=== PATIENT | male | born 1985 | race Caucasian/White ===

== ENCOUNTER 2017-07-22 15:49 | Emergency (ER) | payer OTHER ==
[~2017-07-22] VITALS: Ht 175.2 cm; Wt 77.1 kg
[~2017-07-22 15:49] MED LIST: AMOXICILLIN500 M1 PO; HYDROCODONE BIT1 T11 PO; MOTRIN800 MG PO; NORCO 325 MG-51 TAB PO; PEN-VEE K500 MG PO; PEN-VK500 MG PO; PENICILLIN VK500 MG PO; PERIDEX 480 ML480 ML PO; Peridex 473 ML473 ML PO; TYLENOL325 M1; VIBRAMYCIN100 MG PO
[2017-07-22] MEDS ORDERED: FLONASE ALLERG9.9 ML NAS (16:30)
[2017-07-22] MEDS ORDERED: CLARITIN10 MG PO (16:30)
[2017-07-22] MEDS ORDERED: ROBITUSSIN AC 110 ML PO (16:30)
[2017-07-22] MEDS ORDERED: PREDNISONE10 MG PO (16:30)
== END 2017-07-22 17:28 | disposition home or self-care (01) ==
LOC: ED 15:49
DX: B34.9 Viral infection, unspecified (principal); Z91.030 Bee allergy status

== ENCOUNTER 2017-12-27 18:38 | Emergency (ER) | payer OTHER ==
[~2017-12-27] VITALS: Ht 175.2 cm; Wt 80.7 kg
[~2017-12-27 18:38] MED LIST changes: +CLARITIN10 MG PO; +FLONASE ALLERG9.9 ML NAS; +PREDNISONE10 MG PO; +ROBITUSSIN AC 110 ML PO
== END 2017-12-27 21:28 | disposition home or self-care (01) ==
LOC: ED 18:38
DX: R06.02 Shortness of breath (principal); Z91.030 Bee allergy status

== ENCOUNTER → 2019-12-13 | Outpatient (CLI) | payer OTHER ==
[~2019-12-13] MED LIST changes: +IBU800 MG PO
== END | disposition home or self-care (01) ==
LOC: RAD 13:06
DX: M54.5 Low back pain (principal)

== ENCOUNTER 2020-03-09 16:59 | Inpatient (IN) | payer OTHER ==
[~2020-03-09] VITALS: Ht 175.3 cm; Wt 84.9 kg
[2020-03-09 17:03] VITALS: BP 131/82
[2020-03-09 18:25] LABS: BASO % 0.1 % (0.0-1.0); EOS % 0.2 % (1.0-4.0); HEMATOCRIT 43.5 % (42.0-52.0); LYMPH # 1.5 10*3/uL (1.3-4.4); LYMPH % 18.4 % (27.0-41.0); MEAN CELL VOLUME 85.8 fl (80.0-94.0); MEAN CORPUSCULAR HGB CONC 33.8 g/dl (33.0-37.0); MEAN PLATELET VOLUME 10.7 fl (9.6-12.3); MONO # 0.6 10*3/uL (0.1-1.0); MONO % 7.4 % (3.0-9.0); NEUT # 6.1 10*3/uL (2.3-7.9); NEUT % 73.4 % (47.0-73.0); PLATELET COUNT AUTOMATED 320 10*3/uL (130-400); RED BLOOD COUNT 5.07 10*6/uL (4.50-5.90); RED CELL DISTRI WIDTH 13.8 % (0-14.5); WHITE BLOOD COUNT 8.3 10*3/uL (4.8-10.8)
[2020-03-09 18:29] LABS: ABG BASE EXCESS 3.4 mmol/L (-2.0-2.0); ARTERIAL BLOOD GAS PH 7.463 (7.35-7.45)
--- NOTE | 2020-03-09 18:35 | NUR ---
PT HAD RAPID TESTING DONE AT 1817, AT 1832 PT TESTED POSITIVE FOR COVID-19. IGG AND IGM WERE SHOWN TO BE POSITIVE WELL THE CONTROL PANEL.
[2020-03-09 18:39] LABS: ACT PARTIAL THROMBO TIME 32.5 SECONDS (20.0-32.1)
[2020-03-09 18:42] LABS: ALBUMIN 2.8 gm/dl (3.1-4.5); ALKALINE PHOSPHATASE 113 U/L (45-117); BUN 12 mg/dl (7-24); CHLORIDE 104 mmol/L (98-107); CPK 635 U/L (39-308); CREATININE 0.91 mg/dL (0.70-1.30); LDH 555 U/L (87-241); POTASSIUM 3.2 mmol/L (3.5-5.1); SGOT/AST 81 IU/L (3-35); SGPT/ALT 146 U/L (12-78); SODIUM 137 mmol/L (136-145); TOTAL PROTEIN 7.7 gm/dL (6.4-8.2); TROPONIN I < 0.015 ng/ml (<0.045)
--- NOTE | 2020-03-09 19:21 | NUR ---
CAMILA THORNTON ATTEMPTED TO CALL REPORT OVER PHONE,NURSE UNAVAILABLE AT THIS TIME.
[2020-03-09 20:00] VITALS: BP 120/79
--- NOTE | 2020-03-09 20:00 | NUR ---
Time: 1999 A 34 year old MALE admitted to 5E under services of MARILEE JONES DO. Pt. arrived via bed from ER. Chief complaint: SHORTNESS OF BREATH, COUGH, NAUSEA, VOMITING, DIARRHEA X1 WEEK. YANA COLES
--- NOTE | 2020-03-09 20:36 | NUR ---
OXYGEN ON 6LITERS HUMIDIFIED AT 90-92%. RESP-20, NO SIGNS OF ACUTE DISTRESS NOTED. HR-70-80'S
[2020-03-09] MEDS ORDERED: OMNICEF300 MG PO (21:05)
[2020-03-09] MEDS ORDERED: PRILOSEC20 M1 PO (21:06)
[2020-03-09] MEDS ORDERED: VIIBRYD40 PO (21:06)
[2020-03-09] MEDS ORDERED: MAGNESIUM OXID500 MG PO (21:07)
[2020-03-09] MEDS ORDERED: TOPAMAX25 M3 PO (21:07)
[2020-03-09] MEDS ORDERED: PHARMASSURE FO0.4 MG PO (21:07)
[2020-03-09] MEDS ORDERED: PROAIR HFA8.5 GM INH (21:08)
[2020-03-09] MEDS ORDERED: SYMB160 INH (21:08)
[2020-03-09] MEDS ORDERED: SINGULAIR10 M1 PO (21:09)
[2020-03-09] MEDS ORDERED: MINIPRESS2 M1 PO (21:09)
[2020-03-09] MEDS ORDERED: XANAX1 MG PO (21:10)
[2020-03-09] MEDS ORDERED: REXULTI3 MG PO (21:11)
--- NOTE | 2020-03-09 21:12 | NUR ---
PT 89% 6LITERS. NO DISTRESS NOTED. RESPP-18-20. HR-70-80'S. RESPIRATORY IN ROOM. PLACED ON HIGHFLOW AT 8LITERS 95-96%. NO C/O AT THIS TIME. CALL LIGHT IN REACH.
--- NOTE | 2020-03-09 22:10 | NUR ---
CALLED DR. BOBO AWARE OF ADMISSION. ORDERS TAKEN AND REVIEWED.
--- NOTE | 2020-03-09 22:23 | NUR ---
CALLED DR. PISANO ANSWERING SERVICE THEY WILL BEEP HER.
--- NOTE | 2020-03-09 23:30 | NUR ---
PT RESTING IN BED. OXYGEN IN USE. PT HAS NO C/O AT THIS TIME. TOLERATED ROUTINE MED WITH NO PROBLEM. HR-83, PULSE OX 94% 8 LITER HIGHFLOW. TEMP 97.6 ORALLY. CALL LIGHT IN REACH.
--- NOTE | 2020-03-09 23:40 | NUR ---
PT RESTING IN BED. OXYGEN IN USE. NO C/O AT THIS TIME. TOLERATED ROUTINE MED WITH NO PROBLEM. NO C/O AT THIS TIME. CALL LIGHT IN REACH. SEE SHIFT ASSESSMENT.
[2020-03-10] VITALS (7 sets, daily range): BP systolic 98–170; BP diastolic 64–90
--- NOTE | 2020-03-10 03:50 | NUR ---
PT SAT UP IN BED. PULSE OX 86-88% ON 8 LITER HIGHFLOW. OXYGEN INCREASED GRADUALLY WITH 96% ON 15LITERS HIGHFLOW. BP 127/80, RESP-22. ASSISTED PT IN PRONE POSITION. OXYGEN 100% ON 15LITERS, DECREASED TO 13LITERS HIGHFLOW WITH PULSE OX 95-96%. RESP-23 AT THIS TIME. CALL LIGHT IN REACH.
--- NOTE | 2020-03-10 04:04 | NUR ---
PT INSTRUCTED TO TRY TO LAY ON STOMACH FOR OXYGENATION. INCREASING O2. SAO2 DID IMPROVE WHEN PT TURNED TO BELLY
--- NOTE | 2020-03-10 05:06 | NUR ---
PT SUPINE AT THIS TIME. NO SIGNS OF ACUTE DISTRESS NOTED. OXYGEN IN USE. CALL LIGHT IN REACH.
--- NOTE | 2020-03-10 05:40 | NUR ---
PT RESTING IN BED. LABWORK DRAWN. PULSE OX 88-91% 13LITERS HIGHFLOW. PUT ON 15L HIGHFLOW PULSE OX 90-95%. RESP-20. NO C/O AT THIS TIME. CALL LIGHT IN REACH.
[2020-03-10 06:14] LABS: BASO % 0.2 % (0.0-1.0); EOS # 0.1 10*3/uL (0.0-0.4); EOS % 0.6 % (1.0-4.0); HEMATOCRIT 40.6 % (42.0-52.0); LYMPH # 1.6 10*3/uL (1.3-4.4); LYMPH % 19.5 % (27.0-41.0); MEAN CELL VOLUME 86.4 fl (80.0-94.0); MEAN CORPUSCULAR HGB 28.9 pg (27.0-31.0); MEAN CORPUSCULAR HGB CONC 33.5 g/dl (33.0-37.0); MEAN PLATELET VOLUME 11.1 fl (9.6-12.3); MONO # 0.7 10*3/uL (0.1-1.0); MONO % 8.6 % (3.0-9.0); NEUT # 5.7 10*3/uL (2.3-7.9); NEUT % 70.5 % (47.0-73.0); PLATELET COUNT AUTOMATED 332 10*3/uL (130-400); RED CELL DISTRI WIDTH 13.8 % (0-14.5); WHITE BLOOD COUNT 8.2 10*3/uL (4.8-10.8)
[2020-03-10 06:22] LABS: ABG BASE EXCESS 1.3 mmol/L (-2.0-2.0); ARTERIAL BLOOD GAS PH 7.495 (7.35-7.45)
[2020-03-10 06:29] LABS: ALBUMIN 2.7 gm/dl (3.1-4.5); BUN 12 mg/dl (7-24); CHLORIDE 105 mmol/L (98-107); CHOLESTEROL 97 mg/dL (<200); CREATININE 0.94 mg/dL (0.70-1.30); POTASSIUM 3.1 mmol/L (3.5-5.1); SGOT/AST 61 IU/L (3-35); SGPT/ALT 126 U/L (12-78); SODIUM 137 mmol/L (136-145); TOTAL PROTEIN 7.1 gm/dL (6.4-8.2); TRIGLYCERIDES 260 mg/dl (<150); VLDL CHOLESTEROL 52 mg/dL (6-40)
[2020-03-10 06:30] LABS: ALKALINE PHOSPHATASE 102 U/L (45-117); HDL CHOLESTEROL 7 mg/dl (40-60); LDL CHOLESTEROL 38 mg/dL (9-159)
--- NOTE | 2020-03-10 07:30 | NUR ---
PT RESTING IN BED. VERY ANXIOUS. DENIES ANY PROBLEMS AT THIS TIME. 15L HIGH FLOW NC IN USE AT THIS TIME. PULSE OX CURRENTLY 93%, DROPS DOWN TO 80'S WITH MINIMAL MOVEMENT. DENIES ANY SOB. ASSESSMENT COMPLETE. CALL LIGHT WITHIN REACH. WILL CONTINUE TO MONITOR.
--- NOTE | 2020-03-10 09:21 | NUR ---
09:15 PT UNPRONED WITHOUT INCICENT. ANESTHESIA AT THE HEAD OF THE BED. ETT HARNESS REPOSITIONED AND ETT SECURED AT 26 AT THE LIP. BBSs EQUAL BILATERALLY. VENT CHECKED AND FX'ING. PT SEDATED PRIOR TO UNPRONING BY RN.
--- NOTE | 2020-03-10 09:30 | NUR ---
AWARE PTS PULSE OX KEEPS DROPPING IN THE 80S AND PT ON 15L HIGH FLOW NC. PER HE WANTS THE PATIENT INTUBATED.
--- NOTE | 2020-03-10 10:00 | NUR ---
PT PRONED AT THIS TIME.
--- NOTE | 2020-03-10 10:00 | NUR ---
TALKED TO PT ABOUT BEING INTUBATED. EXPLAINED THE REASONING FOR WANTING HIM INTUBATED AND THE RISK OF NOT BEING INTUBATED. PT REFUSING INTUBATION AT THIS TIME. AT BEDSIDE TO EXPLAIN THE RISKS TO PATIENT ALSO AND PATIENT STILL REFUSING.
--- NOTE | 2020-03-10 11:00 | NUR ---
PT ON BACK AT THIS TIME. PT STATES HE COULD NOT STAY PRONED ANY LONGER.
--- NOTE | 2020-03-10 13:00 | NUR ---
Infomed consent obtained from patient by Dr. JENNIFER SUAREZ [employer] COATER MACHINE OPERATOR for elective intubation. Patient intubated with 8 Guatemalan endotracheal tube orally X 1 attempts. Patient sedated with DIPRIVAN, ZEMURON, VERSED Respiratory therapy at bedside. Crash cart with emergency drugs available. Endotracheal tube inflated with 8cc's. Lungs auscultated for equality of breath sounds. Tube secured with Tube tamer at 27 cm's. at level of LIP . Patient tolerated procedure WELL. Portable chest X-ray obtained and reviewed for tube placement. Patient connected to ventilator CMV mode, 500 tidal volume, 60 FIO2, 15 PEEP, and pressure support. ALEXEY HUMPHRIES
--- NOTE | 2020-03-10 14:30 | NUR ---
ART LINE PLACED BY DR MENDEZ TO RIGHT RADIAL. R)IJ MULTILUMEN CATH PLACED BY JENNIFER SUAREZ CRNA.
--- NOTE | 2020-03-10 15:16 | NUR ---
13:00 PT INTUBATED WITHOUT INCIDENT BY ANESTHESIA : #8 28 CM AT LIP. BBSs EQUAL, CLEAR, DIMINISHED. ETT SECURED WITH TUBE TAMER. PT PLACED ON VENT. VENT CHECKED AND FX'ING.
--- NOTE | 2020-03-10 15:24 | NUR ---
14:00 INITIAL VENT SETTINGS UPON INTUBATION: AC20/450/.90/+10. CHANGES PER DR BOBO : AC20/500/.60/+15. ABG TO FOLLOW IN 2 HRS.
--- NOTE | 2020-03-10 15:34 | NUR ---
PT GIVEN ZEMURON FOR RESTLESSNESS.
[2020-03-10 16:29] LABS: ABG BASE EXCESS -0.6 mmol/L (-2.0-2.0); ARTERIAL BLOOD GAS PH 7.354 (7.35-7.45)
[2020-03-10 17:46] LABS: ABG BASE EXCESS -0.3 mmol/L (-2.0-2.0); ARTERIAL BLOOD GAS PH 7.375 (7.35-7.45)
--- NOTE | 2020-03-10 18:15 | NUR ---
PT MEDICATED WITH ZEMURON DUE TO RESTLESSNESS AND BREATHING ABOVE THE VENT. PT MEDICATED WITH TYLENOL FOR TEMP OF 100
--- NOTE | 2020-03-10 18:57 | NUR ---
PT PRONED AT THIS TIME.
--- NOTE | 2020-03-10 18:58 | NUR ---
Shift chart check completed.24 HR chart check completed.
--- NOTE | 2020-03-10 19:28 | NUR ---
Pt proned at 1845. Pt is in swimming position. ABG will be drawn in 2 hours.
--- NOTE | 2020-03-10 21:05 | NUR ---
Pts head turned and tube secured. Arms swam in opposite swimming position.
[2020-03-10 21:12] LABS: ABG BASE EXCESS -0.3 mmol/L (-2.0-2.0); ARTERIAL BLOOD GAS PH 7.361 (7.35-7.45)
--- NOTE | 2020-03-10 21:24 | NUR ---
ON ASSESSMENT PT IS RESTING IN PRONE POSITION. REMAINS ORALLY INTUBATED WITH TUBES SECURE. DIPRIVAN DRIP AT 50MCG/KG/MIN. IV FLUIDS UP TO INFUSE PER ORDER. PULMOCARE AT 20/HR VIA OGT. LUCIANO PATENT CHRIS URINE. RECTAL PROBE PLACED FOR CONTINUAL TEMP MONITORING. AT 2100 WITH ASSIST OF RESPIRATORY, PT'S ARMS WERE ALTERNATED AND HIS HEAD REPOSITIONED. ALL TUBES SECURED AND PADDING IN PLACE TO PRESSURE AREAS. NEGATIVE AIRFLOW HAS BEEN MAINTAINED. SEE ALL APPROPRIATE INTERVENTIONS.
--- NOTE | 2020-03-10 22:48 | NUR ---
ROCURONIUM 92MG IV SLOWLY AT 2217 FOR RESTLESSNESS AND TACHYPNEA IN PRONE POSITION WITH IMMEDIATE RELIEF.
--- NOTE | 2020-03-10 23:45 | NUR ---
Pts head turned and tube secured. Arms in opposite swimming position. No comps. FIO2 decreased from 60% to 55%.
[2020-03-11] VITALS (33 sets, daily range): BP systolic 74–153; BP diastolic 48–89
--- NOTE | 2020-03-11 00:18 | NUR ---
PT REPOSITIONED WITH ASSIST OF RESPIRATORY THERAPY. FIO2 HAS BEEN TITRATED DOWN TO 55%. NO DYSRHYTHMIAS.
--- NOTE | 2020-03-11 02:51 | NUR ---
AT 0201 PT GIVEN IV ROCURONIUM FOR RESTLESSNESS WITH EFFECTIVENESS. PT'S HEAD AND ARMS POSITION CHANGED.
--- NOTE | 2020-03-11 04:23 | NUR ---
PT RESTING EASILY, ADEQUATELY SEDATED ON DIPRIVAN DRIP.
[2020-03-11 04:51] LABS: ALBUMIN 2.4 gm/dl (3.1-4.5); ALKALINE PHOSPHATASE 122 U/L (45-117); BUN 12 mg/dl (7-24); CHLORIDE 108 mmol/L (98-107); CREATININE 0.69 mg/dL (0.70-1.30); POTASSIUM 3.7 mmol/L (3.5-5.1); SGOT/AST 54 IU/L (3-35); SGPT/ALT 100 U/L (12-78); SODIUM 141 mmol/L (136-145); TOTAL PROTEIN 6.7 gm/dL (6.4-8.2); TRIGLYCERIDES 427 mg/dl (<150)
--- NOTE | 2020-03-11 05:00 | NUR ---
Pts proned head turned to the other side and tube secured. Arms moved into oppossite swimming position. No comps. Alarms on vent on and audible.
[2020-03-11 05:12] LABS: ABG BASE EXCESS -0.6 mmol/L (-2.0-2.0); ARTERIAL BLOOD GAS PH 7.324 (7.35-7.45)
[2020-03-11 06:13] LABS: BASO % 0.3 % (0.0-1.0); EOS % 0.4 % (1.0-4.0); HEMATOCRIT 39.3 % (42.0-52.0); LYMPH # 1.5 10*3/uL (1.3-4.4); LYMPH % 13.3 % (27.0-41.0); MEAN CELL VOLUME 88.7 fl (80.0-94.0); MEAN CORPUSCULAR HGB 28.7 pg (27.0-31.0); MEAN CORPUSCULAR HGB CONC 32.3 g/dl (33.0-37.0); MEAN PLATELET VOLUME 11.7 fl (9.6-12.3); MONO # 0.8 10*3/uL (0.1-1.0); MONO % 7.3 % (3.0-9.0); NEUT # 8.5 10*3/uL (2.3-7.9); PLATELET COUNT AUTOMATED 431 10*3/uL (130-400); RED BLOOD COUNT 4.43 10*6/uL (4.50-5.90); RED CELL DISTRI WIDTH 14.6 % (0-14.5); WHITE BLOOD COUNT 10.9 10*3/uL (4.8-10.8)
--- NOTE | 2020-03-11 07:45 | NUR ---
SEDATED ON VENT WITH DIPRIVAN 50 JV'S. BODY QUIVERING WITH RECTAL TEMP 99.5. BP 117/66. PULSE OX 96%. OGT IN PLACE WITH PULMOCARE INFUSING AT 20CC/HR. ART LINE INTACT TO RIGHT RADIAL AND RIGHT INTERNAL JUGULAR INTACT. LUCIANO DRAINING DARK CHRIS URINE
--- NOTE | 2020-03-11 08:45 | NUR ---
FIO2 DECREASED TO 50%, RN NOTIFIED.
--- NOTE | 2020-03-11 10:00 | NUR ---
PLACED BACK IN SUPINE POSITION. TOLERATED WELL. COMPLETE BED AND BATH DONE
[2020-03-11 10:35] LABS: ABG BASE EXCESS -1.1 mmol/L (-2.0-2.0); ARTERIAL BLOOD GAS PH 7.314 (7.35-7.45)
--- NOTE | 2020-03-11 11:44 | NUR ---
PT IS CURRENTLY ON VENT SO UNABLE TO TALK ABOUT DISCHARGE PLANS.
--- NOTE | 2020-03-11 11:49 | NUR ---
Nutritional Support Services Note: Pt currently on vent. Ht.5'9 Wt.207# IBW 150-489 He is receiving Pulmocare via OGT at 20cc/hr. TF will provide pt iwth 480cc/720cal daily. Advance diet as tolerated. He requires approx. 2000cal daiy. will follow as needed. Kacey Moore Rdn Ld
[2020-03-11 16:34] LABS: ARTERIAL BLOOD GAS PH 7.405 (7.35-7.45)
--- NOTE | 2020-03-11 17:30 | NUR ---
DR. BOBO CALLED IN AND UPDATED ON PATIENT'S CONDITION. NOTIFIED OF MAP 60-65. STAT LABS DRAWN AND TOLD TO NOTIFY DR. PISANO
[2020-03-11 18:10] LABS: BASO % 0.2 % (0.0-1.0); EOS # 0.2 10*3/uL (0.0-0.4); EOS % 1.4 % (1.0-4.0); HEMATOCRIT 36.6 % (42.0-52.0); LYMPH # 1.5 10*3/uL (1.3-4.4); LYMPH % 14.1 % (27.0-41.0); MEAN CELL VOLUME 89.3 fl (80.0-94.0); MEAN CORPUSCULAR HGB CONC 32.5 g/dl (33.0-37.0); MONO % 9.3 % (3.0-9.0); NEUT # 8.1 10*3/uL (2.3-7.9); NEUT % 73.8 % (47.0-73.0); PLATELET COUNT AUTOMATED 449 10*3/uL (130-400); RED CELL DISTRI WIDTH 14.8 % (0-14.5); WHITE BLOOD COUNT 10.9 10*3/uL (4.8-10.8)
[2020-03-11 18:25] LABS: ALBUMIN 2.2 gm/dl (3.1-4.5); ALKALINE PHOSPHATASE 151 U/L (45-117); BUN 12 mg/dl (7-24); CHLORIDE 111 mmol/L (98-107); LDH 379 U/L (87-241); POTASSIUM 3.9 mmol/L (3.5-5.1); SGOT/AST 85 IU/L (3-35); SGPT/ALT 107 U/L (12-78); SODIUM 142 mmol/L (136-145); TOTAL PROTEIN 6.5 gm/dL (6.4-8.2)
--- NOTE | 2020-03-11 18:30 | NUR ---
12:45 UPON ARRIVAL TO PT'S ROOM, PT WITH ALOT OF ORAL SECRETIONS. RESTLESS AND TREMBLING. ETT HAD SLIPPED TO APPROX 25 AT THE LIP. ETT ADVANCED TO 28 AT THE LIP AND SECURED. PT SUCTIONED FOR LARGE TENACIOUS SECRETIONS. BBSs EQUAL AND CLEAR. VENT CHECKED AND FX'ING. RN AWARE. RN TO MEDICATE PT.
[2020-03-11 18:55] LABS: ABG BASE EXCESS -0.8 mmol/L (-2.0-2.0); ARTERIAL BLOOD GAS PH 7.398 (7.35-7.45)
--- NOTE | 2020-03-11 19:00 | NUR ---
LEVOPHED GTT STARTED AT 5 JV'S, KETAMINE GTT STARTED AT 2 JV'S AND DIPRIVAN GTT TITRATED DOWN TO 20 JV'S.
--- NOTE | 2020-03-11 19:16 | NUR ---
24 HR chart check completed.
--- NOTE | 2020-03-11 19:52 | NUR ---
SPOKE WITH DR BABIN AND EXPLAINED THAT THE PT'S FAMILY IS UNREACHABLE FOR HEP B VERIFICATION. HEP B PANEL WILL BE DRAWN BUT IS A SEND OUT AND NO STAT RESULTS WILL BE AVAILABLE. DESPITE ALL OF THIS ACTERMA IS STILL GOING TO BE GIVEN A LIFE SAVING MEASURE.
--- NOTE | 2020-03-11 21:02 | NUR ---
ONE OF THE RIGHT MULTILUMEN PORTS WAS CLOGGED WITH BLOOD THAT WAS INFUSING THE LEVOPHED. I WAS UNABLE TO CLEAR THIS PORT SO I CONNECTED THE DIPRIVAN WITH THE LEVOPHED BECAUSE THEY ARE COMPATIBLE. TRIED TO PREMEDICATE WITH BENADRYL AND SOLUMEDROL IV FOR ACTERMA INFUSING IN RIGHT AC IV ACCESS AND IT WAS OCCLUDED. NEW IV STARTED IN LEFT HAND AND MEDS FINALLY ADMINISTRATED. ASTERMA WAS STARTED 30 MINUTES AFTER PREMEDICATED MEDS ADMINISTERED. LEVOPHED WAS ABLE TO BE DECREASED TO 2.5MCG/MIN (18.8CC/H) R/T A BP OF 153/89 NOW THAT LEVOPHED WAS INFUSING. KETAMINE INCREASED TO 3.5MCG/KG/MIN. DIPRIVAN DECREASED 15MCG/KG/MIN.
--- NOTE | 2020-03-11 22:52 | NUR ---
NEW 20 G IV PLACED IN RIGHT HAND. I WAS ABLE TO UNCLOG THE DISTAL PORT. KETAMINE INCREASED TO 10.5 MCG/KG/MIN AND RESTING PEACEFULLY. DIPRIVAN GTT D/C. LEVOPHED GTT WAS ALSO ABLE TO D/C AND TOLERATING WELL.
[2020-03-12] VITALS (35 sets, daily range): BP systolic 85–182; BP diastolic 50–100
--- NOTE | 2020-03-12 02:24 | NUR ---
PT. IN FULL BODY COUGH AFTER REPOSITIONING. ZEMURON GIVEN FOR RESTLESSNESS AT 0214, IMMEDIATELY EFFECTIVE. DIPROVAN INCREASED TO 20 MICS. ZULEIKA MOELLER RN
[2020-03-12 05:22] LABS: ABG BASE EXCESS -0.9 mmol/L (-2.0-2.0); ARTERIAL BLOOD GAS PH 7.37 (7.35-7.45)
[2020-03-12 06:12] LABS: HEMATOCRIT 38.3 % (42.0-52.0); MEAN CELL VOLUME 89.5 fl (80.0-94.0); MEAN CORPUSCULAR HGB 28.7 pg (27.0-31.0); MEAN CORPUSCULAR HGB CONC 32.1 g/dl (33.0-37.0); MEAN PLATELET VOLUME 11.4 fl (9.6-12.3); PLATELET COUNT AUTOMATED 516 10*3/uL (130-400); RED BLOOD COUNT 4.28 10*6/uL (4.50-5.90); WHITE BLOOD COUNT 7.8 10*3/uL (4.8-10.8)
[2020-03-12 06:44] LABS: PLATELET SUFFICIENCY HIGH (NORMAL); TOTAL CELLS COUNTED 100 #CELLS
[2020-03-12 06:45] LABS: POLYCHROMASIA SLIGHT
--- NOTE | 2020-03-12 08:25 | NUR ---
MEDICATED WITH IV ZEMURON ORDERED FOR ASSISTING THE VENT.
[2020-03-12 08:27] LABS: ALBUMIN 2.4 gm/dl (3.1-4.5); ALKALINE PHOSPHATASE 187 U/L (45-117); BUN 18 mg/dl (7-24); CHLORIDE 112 mmol/L (98-107); CHOLESTEROL 113 mg/dL (<200); CREATININE 0.79 mg/dL (0.70-1.30); POTASSIUM 4.2 mmol/L (3.5-5.1); SGOT/AST 74 IU/L (3-35); SGPT/ALT 118 U/L (12-78); SODIUM 144 mmol/L (136-145); TOTAL PROTEIN 7.1 gm/dL (6.4-8.2); TRIGLYCERIDES 282 mg/dl (<150); VLDL CHOLESTEROL 56 mg/dL (6-40)
[2020-03-12 08:28] LABS: HDL CHOLESTEROL 12 mg/dl (40-60); LDL CHOLESTEROL 45 mg/dL (9-159)
--- NOTE | 2020-03-12 10:00 | NUR ---
24 HR chart check completed.
[2020-03-12 10:26] LABS: ABG BASE EXCESS -1.6 mmol/L (-2.0-2.0); ARTERIAL BLOOD GAS PH 7.362 (7.35-7.45)
--- NOTE | 2020-03-12 12:23 | NUR ---
PT REMAINS ON VENT. DISCHARGE PLANS UNDECIDED AT THIS TIME.
--- NOTE | 2020-03-12 15:15 | NUR ---
MEDICATED WITH IV ZEMURON ORDERED FOR SEVERE AGITATION AND BREATHING OVER THE VENT.
--- NOTE | 2020-03-12 20:19 | NUR ---
PT. RESTING IN BED. DIPROVAN INCREASED TO 40MICS DUE TO "WHOLE BODY" COUGHING/CHOKING AND ATTEMPTING TO SIT UP. KETAMINE CONTINUES AT 6 MICS. PULMOCARE TF CONTINUES ORDERED, SITE CONFIRMED WITH AIR BOLUS AND 3CC'S MINIMAL RESIDUAL NOTED VIA OGT. LUNGS DIMINISHED BILAT, PULSE OX 97% ON 40% FIO2. ABDOMEN SOFT, NONDISTENDED AND NORMO. NO PERIPHERAL EDEMA NOTED LUCIANO DRAINING A CLEAR YELLOW URINE. PT. GIVEN ORAL MOUTH CARE AND SUCTIONED ORALLY AND VIA ENDO FOR SMALL AMT OF MUCOUS. RIJ MLC ASYMPT, ALL PORTS PATENT. ART LINE IN RIGHT RADIAL LEVELED, ZEROED AND FLUSHED PER POLICY. PT. GIVEN ZEMURON ORDERED FOR CONTINUEING RESTLESSNESS AND GAGGING AT 2020, IMMEIDATELY EFFECTIVE. ZULEIKA MOELLER RN
[2020-03-13] VITALS (47 sets, daily range): BP systolic 83–164; BP diastolic 47–96
--- NOTE | 2020-03-13 00:01 | NUR ---
PT'S DIPROVAN INCREASED TO 50MICS DUE TO PATIENTS RESTLESSNESS AND "WHOLE BODY COUGHING". ZULEIKA MOELLER RN
[2020-03-13 05:14] LABS: ARTERIAL BLOOD GAS PH 7.412 (7.35-7.45)
[2020-03-13 05:43] LABS: ALBUMIN 2.5 gm/dl (3.1-4.5); ALKALINE PHOSPHATASE 161 U/L (45-117); BUN 26 mg/dl (7-24); CHLORIDE 113 mmol/L (98-107); CPK 463 U/L (39-308); CREATININE 1.11 mg/dL (0.70-1.30); LDH 324 U/L (87-241); POTASSIUM 3.5 mmol/L (3.5-5.1); SGOT/AST 82 IU/L (3-35); SGPT/ALT 119 U/L (12-78); SODIUM 146 mmol/L (136-145); TOTAL PROTEIN 6.8 gm/dL (6.4-8.2)
[2020-03-13 05:46] LABS: PREALBUMIN 15 mg/dl (20-40)
[2020-03-13 05:50] LABS: BASO % 0.1 % (0.0-1.0); HEMATOCRIT 36.2 % (42.0-52.0); LYMPH # 1.4 10*3/uL (1.3-4.4); LYMPH % 11.6 % (27.0-41.0); MEAN CELL VOLUME 87.9 fl (80.0-94.0); MEAN CORPUSCULAR HGB 28.4 pg (27.0-31.0); MEAN CORPUSCULAR HGB CONC 32.3 g/dl (33.0-37.0); MONO # 1.4 10*3/uL (0.1-1.0); MONO % 11.2 % (3.0-9.0); NEUT # 9.1 10*3/uL (2.3-7.9); NEUT % 75.5 % (47.0-73.0); PLATELET COUNT AUTOMATED 650 10*3/uL (130-400); RED BLOOD COUNT 4.12 10*6/uL (4.50-5.90); RED CELL DISTRI WIDTH 14.9 % (0-14.5)
--- NOTE | 2020-03-13 08:39 | NUR ---
PHARMACIST NOTIFIED OF CRITICAL VANCO TROUGH
--- NOTE | 2020-03-13 08:44 | NUR ---
PT BECOMING VERY RESTLESS AND THRASHING ABOUT IN BED. ZEMURON GIVEN AT THIS TIME PER DR ORDER.
[2020-03-13 09:02] LABS: HEP B CORE AB, IGM Negative (Negative); HEPATITIS B SURFACE AG Negative (Negative); HEPATITIS C VIRUS ANTIBODY <0.1 s/co (0.0-0.9)
[2020-03-13 13:53] LABS: ABG BASE EXCESS 2.6 mmol/L (-2.0-2.0); ARTERIAL BLOOD GAS PH 7.432 (7.35-7.45)
--- NOTE | 2020-03-13 16:00 | NUR ---
KETAMINE TITRATED DOWN TO 1 JV. DIPRIVAN RAN OUT AND SITTING STRAIGHT UP IN BED. RECTAL TEMP 99. LUNGS CLEAR BILATERALLY. NO EDEMA NOTED. REMAINS IN SOFT WRIST RESTRAINTS BILATERALLY. LUCIANO DRAINING CLEAR YELLOW URINE
[2020-03-13 17:40] LABS: ABG BASE EXCESS 3.7 mmol/L (-2.0-2.0); ARTERIAL BLOOD GAS PH 7.438 (7.35-7.45)
--- NOTE | 2020-03-13 20:00 | NUR ---
On assessment it was noted that the rt ij was pulled out almost all the way. The line of the ij was not sutured with the rest. Unsure how long this had been out, but patients pillow and sheet were soaked with meds. Another iv was started in hand and the diprivan and levophed was moved from ij. Dr reyes was notified and he stated he will be up to place a new one. Patient more sedated since transfer of iv sites. Monitoring on camera.
--- NOTE | 2020-03-13 23:45 | NUR ---
24 HR chart check completed.
[2020-03-14] VITALS (97 sets, daily range): BP systolic 88–191; BP diastolic 45–100
[2020-03-14 00:02] LABS: TB1 Ag VALUE 0.02 IU/mL (.)
--- NOTE | 2020-03-14 03:50 | NUR ---
Patient awake, pulling at restraints, resp 30. Patient given naomie. Effective immediately. Monitoring on camera.
[2020-03-14 05:47] LABS: ALBUMIN 2.6 gm/dl (3.1-4.5); ALKALINE PHOSPHATASE 164 U/L (45-117); BUN 29 mg/dl (7-24); CHLORIDE 114 mmol/L (98-107); CREATININE 1.01 mg/dL (0.70-1.30); LDH 351 U/L (87-241); POTASSIUM 3.3 mmol/L (3.5-5.1); SGOT/AST 91 IU/L (3-35); SGPT/ALT 131 U/L (12-78); SODIUM 148 mmol/L (136-145); TOTAL PROTEIN 6.7 gm/dL (6.4-8.2); TRIGLYCERIDES 391 mg/dl (<150)
[2020-03-14 05:48] LABS: PREALBUMIN 24 mg/dl (20-40)
[2020-03-14 05:56] LABS: ABG BASE EXCESS 3.7 mmol/L (-2.0-2.0); ARTERIAL BLOOD GAS PH 7.446 (7.35-7.45)
[2020-03-14 06:35] LABS: BASO % 0.4 % (0.0-1.0); HEMATOCRIT 35.2 % (42.0-52.0); LYMPH # 1.9 10*3/uL (1.3-4.4); LYMPH % 24.6 % (27.0-41.0); MEAN CELL VOLUME 90.3 fl (80.0-94.0); MEAN CORPUSCULAR HGB 28.5 pg (27.0-31.0); MEAN CORPUSCULAR HGB CONC 31.5 g/dl (33.0-37.0); MEAN PLATELET VOLUME 10.9 fl (9.6-12.3); MONO # 1.1 10*3/uL (0.1-1.0); MONO % 14.1 % (3.0-9.0); NEUT # 4.6 10*3/uL (2.3-7.9); NEUT % 59.1 % (47.0-73.0); PLATELET COUNT AUTOMATED 661 10*3/uL (130-400); RED CELL DISTRI WIDTH 14.6 % (0-14.5); WHITE BLOOD COUNT 7.8 10*3/uL (4.8-10.8)
--- NOTE | 2020-03-14 08:00 | NUR ---
PATIENT REMAINS ON VENT WITH O2 AT 30%, AC 25, PEEP 14 AND TV 420. ENDOTUBE SECURE AT 29 AT LIP. ORAL CARE DONE. RIGHT RADIAL ARTERIAL LINE ZERO AND CALIBRATED WITH GOOD WAVE FORM. RIJ INPLACE, DRESSING CHANGED. OGT PLACEMENT CHECKED AND ADVANCED TO 65CM AT LIP. CHEST XRAY REORDERED TO CONFIRM PLACEMENT. ABDOMEN DISTENDED AND FIRM TO TOUCH. DENIES PAIN. RECTAL TEMP INPLACE 99-100.3. LUCIANO PATENT FOR CHRIS URINE. RANDELL RIOS RN
--- NOTE | 2020-03-14 09:37 | NUR ---
TALKED WITH PT BROTHER WHO STATES HE IS SURE PT WOULD WANT TO GO HOME WHEN MEDICALLY STABLE. DISCUSSED SNF CARE OR HOME HEALTH ON DISCHARGE, BUT STATES THEY WILL HAVE TO WAIT AND SEE HOW PT IS AFTER COMING OF VENT. WILL CONTINUE TO FOLLOW.
--- NOTE | 2020-03-14 13:00 | NUR ---
HALDOL DRIP STARTED PER ORDERS
[2020-03-14 15:19] LABS: ABG BASE EXCESS 4.3 mmol/L (-2.0-2.0); ARTERIAL BLOOD GAS PH 7.466 (7.35-7.45)
[2020-03-14 18:49] LABS: HEMATOCRIT 36.5 % (42.0-52.0)
[2020-03-14 19:00] LABS: ACT PARTIAL THROMBO TIME 26.9 SECONDS (20.0-32.1)
--- NOTE | 2020-03-14 19:03 | NUR ---
BATHED AFTER INCONT OF LARGE BROWN LOOSE BM.. OGT PLACED TO SUCTION AFTER SM COFFEE GROUND EMESIS TO OBTAIN COFFEE COLORED LIQUID...GASTRIC CULT OBTAINED PER DR MENDEZ.. STAT LABS DRAWN..
--- NOTE | 2020-03-14 19:06 | NUR ---
COMPLIANCE AUDITOR AWARE OF CHANGES
[2020-03-14 19:28] LABS: ARTERIAL BLOOD GAS PH 7.491 (7.35-7.45)
--- NOTE | 2020-03-14 22:20 | NUR ---
Patient very agitated, sitting up, pulling, kicking feet and tremors noted all over. Ry was given. Effective immediately. Bp up to 180/90, titrated levophed down to 2mcg. Will monitor.
--- NOTE | 2020-03-14 22:45 | NUR ---
No agitation noted, patients bp is still 180-190/100. Titrated levophed off. Will monitor.
[2020-03-15] VITALS (21 sets, daily range): BP systolic 92–167; BP diastolic 54–102
--- NOTE | 2020-03-15 04:10 | NUR ---
SAO2 KEPT DIPPING TO 88% SLOWLY WENT UP ON O2 TIL SAO2 REMAINED ABOVE 92% 40%
[2020-03-15 04:46] LABS: ALBUMIN 2.8 gm/dl (3.1-4.5); ALKALINE PHOSPHATASE 143 U/L (45-117); BUN 24 mg/dl (7-24); CHLORIDE 112 mmol/L (98-107); CREATININE 1.03 mg/dL (0.70-1.30); POTASSIUM 3.7 mmol/L (3.5-5.1); SGOT/AST 77 IU/L (3-35); SGPT/ALT 141 U/L (12-78); SODIUM 147 mmol/L (136-145); TOTAL PROTEIN 6.4 gm/dL (6.4-8.2)
[2020-03-15 05:09] LABS: ARTERIAL BLOOD GAS PH 7.452 (7.35-7.45)
[2020-03-15 06:13] LABS: HEMATOCRIT 36.4 % (42.0-52.0); MEAN CELL VOLUME 90.1 fl (80.0-94.0); MEAN CORPUSCULAR HGB 28.7 pg (27.0-31.0); MEAN CORPUSCULAR HGB CONC 31.9 g/dl (33.0-37.0); MEAN PLATELET VOLUME 10.7 fl (9.6-12.3); PLATELET COUNT AUTOMATED 670 10*3/uL (130-400); RED BLOOD COUNT 4.04 10*6/uL (4.50-5.90); RED CELL DISTRI WIDTH 14.6 % (0-14.5); WHITE BLOOD COUNT 7.5 10*3/uL (4.8-10.8)
[2020-03-15 07:26] LABS: ATYPICAL LYMPHS 1 % (0-0); BASOPHILS 1 % (0-1); PLASMA CELL 1 % (0-0); TOTAL CELLS COUNTED 100 #CELLS
[2020-03-15 07:27] LABS: PLATELET SUFFICIENCY HIGH (NORMAL)
--- NOTE | 2020-03-15 10:00 | NUR ---
MEDICATED PT PER PRN ORDER WITH ZEMURON FOR AGITATION.
--- NOTE | 2020-03-15 13:00 | NUR ---
MEDICATED PT PER PRN ORDER WITH ZEMURON FOR PT'S AGITATION.
--- NOTE | 2020-03-15 13:20 | NUR ---
PT RESTING. ZEMURON EFFECTIVE.
[2020-03-15 14:12] LABS: ABG BASE EXCESS 2.6 mmol/L (-2.0-2.0); ARTERIAL BLOOD GAS PH 7.345 (7.35-7.45)
--- NOTE | 2020-03-15 17:00 | NUR ---
MEDICATED PT PER PRN ORDER WITH ZEMURON FOR HIS AGITATION.
--- NOTE | 2020-03-15 17:27 | NUR ---
PT RESTING. EARLIER ZEMURON EFFECTIVE. DR BOBO IN TO SEE PT. UPDATED HIM ON PT'S CONDITION AND PLAN OF CARE. NEW ORDERS RECEIVED.
--- NOTE | 2020-03-15 17:28 | NUR ---
PT RESTING. ZEMURON EFFECTIVE.
[2020-03-15 17:44] LABS: ABG BASE EXCESS 4.5 mmol/L (-2.0-2.0); ARTERIAL BLOOD GAS PH 7.372 (7.35-7.45)
[2020-03-15 18:20] LABS: BUN 21 mg/dl (7-24); CHLORIDE 107 mmol/L (98-107); CREATININE 0.97 mg/dL (0.70-1.30); POTASSIUM 3.9 mmol/L (3.5-5.1); SODIUM 143 mmol/L (136-145)
--- NOTE | 2020-03-15 21:45 | NUR ---
Patient agitated, lifting head, pulling at arms, blood pressure 180/100's, resp 28. Ry given, effective for resps,and agitation. blood pressure remains 160/90's. Monitoring on camera.
[2020-03-16] VITALS (16 sets, daily range): BP systolic 90–174; BP diastolic 53–101
--- NOTE | 2020-03-16 04:38 | NUR ---
Patient very agitated, pulling arms and covers, hr 120's, bp 160/90's, resp 28. Ry given. Effective immediately. bp 130/60's, hr 110, resp 17. Monitoring.
[2020-03-16 05:57] LABS: ALBUMIN 3.1 gm/dl (3.1-4.5)
[2020-03-16 05:58] LABS: ARTERIAL BLOOD GAS PH 7.387 (7.35-7.45)
[2020-03-16 06:00] LABS: ALKALINE PHOSPHATASE 156 U/L (45-117); BUN 24 mg/dl (7-24); CHLORIDE 109 mmol/L (98-107); CREATININE 0.89 mg/dL (0.70-1.30); POTASSIUM 3.7 mmol/L (3.5-5.1); SGOT/AST 110 IU/L (3-35); SGPT/ALT 221 U/L (12-78); SODIUM 143 mmol/L (136-145); TOTAL PROTEIN 7.4 gm/dL (6.4-8.2); TRIGLYCERIDES 631 mg/dl (<150)
[2020-03-16 06:09] LABS: HEMATOCRIT 40.3 % (42.0-52.0); MEAN CELL VOLUME 90.8 fl (80.0-94.0); MEAN CORPUSCULAR HGB 28.8 pg (27.0-31.0); MEAN CORPUSCULAR HGB CONC 31.8 g/dl (33.0-37.0); MEAN PLATELET VOLUME 10.3 fl (9.6-12.3); PLATELET COUNT AUTOMATED 690 10*3/uL (130-400); RED BLOOD COUNT 4.44 10*6/uL (4.50-5.90); RED CELL DISTRI WIDTH 14.2 % (0-14.5); WHITE BLOOD COUNT 11.4 10*3/uL (4.8-10.8)
[2020-03-16 06:40] LABS: BASOPHILS 1 % (0-1); TOTAL CELLS COUNTED 100 #CELLS
[2020-03-16 06:41] LABS: PLATELET SUFFICIENCY HIGH (NORMAL); POLYCHROMASIA SLIGHT
--- NOTE | 2020-03-16 07:35 | NUR ---
Shift chart check completed.24 HR chart check completed.
--- NOTE | 2020-03-16 09:27 | NUR ---
ON ASSESSMENT PATIENT RESTLESS, ANXIOUS, TREMULOUS WHICH DIMINISHED WHEN YOU'RE TALKING TO HIM. HE REMAINS ORALLY INTUBATED, ON VENTILATOR. DIPRIVAN AT 40MCG/KG/MIN. NO SEDATION VACATION PT IS AWAKE AT THIS DOSE, FOLLOWING COMMANDS AND HELPING REPOSITION. HALDOL DRIP AT 2.5MG/HR. SOFT RESTRAINTS IN PLACE TO PREVENT ACCIDENTAL SELF EXTUBATION. LUCIANO PATENT YELLOW URINE. SCD'S IN PLACE. NO SKIN ISSUES. ARTERIAL LINE AND LIJ MLC INTACT. PT NODDED "YES" HE WANTED TV ON AND WE WENT THROUGH CHANNELS UNTIL ANIMAL SHOW AND HE NODDED. FAMILY UPDATED VIA PHONE. PULMOCARE AT 20/HR. SEE ALL APPROPRIATE INTERVENTIONS.
[2020-03-16 17:42] LABS: ABG BASE EXCESS 1.2 mmol/L (-2.0-2.0); ARTERIAL BLOOD GAS PH 7.458 (7.35-7.45)
--- NOTE | 2020-03-16 17:44 | NUR ---
DR BOBO AND RT PLACED PT ON CPAP EARLIER, DIPRIVAN DRIP D/C SECONDARY TO THIS AND ELEVATED TRIGLYCERIDES. HALDOL DRIP CONTINUES AT 2.5MG/HR. PT WAS INCONTINENT OF LIQUID BROWN BM EARLIER. PT HAS BEEN RESTLESS, TREMBLING, TACHYCARDIC AND TACHYPNEIC WITH NO SEDATION AND CPAP. REASSURANCES HAVE BEEN GIVEN. PT NODS HIS HEAD THAT HE TREMBLES LIKE THIS AT HOME AND CAN'T CONTROL IT. RT SENT GASES AND SWITCHED PT BACK TO A/C. HE'S GOING TO CALL DR BOBO FROM THE ROOM. SEE ALL APPROPRIATE INTERVENTIONS.
--- NOTE | 2020-03-16 18:37 | NUR ---
AFTER ABG'S WERE DRAWN. PT WAS DESATURATING WHILE RESP THERAPY IN ROOM. HE CALLED DR BOBO VIA TABLET AND THEY CALLED ME TO THE ROOM. I GAVE HIM HALF DOSE OF ROCURONIUM DIRECTED BY DR BOBO. RT ADJUSTED VENT SETTINGS MULTIPLE TIMES THEN DR BOBO TOLD ME TO PRONE PATIENT SOON POSSIBLE AND GET PORTABLE CXR. HE ASKED IF I HAD GIVEN PT THERAPEUTIC LOVENOX AND I TOLD HIM THAT I HAD GIVEN HIM 0.5MG/KG AND THAT HE WOULD GET 1MG/KG TONIGHT AT 2200 AND BID THEREAFTER. WE ARE AWAITING ANESTHESIA FOR PRONING.
--- NOTE | 2020-03-16 19:39 | NUR ---
PT PRONED WITH ASSIST OF ANESTHESIA. DR BOBO CALLED VIA TABLET. DISCUSSION WITH HIM, MYSELF, AND RESPIRATORY. ORDERS RECEIVED.
--- NOTE | 2020-03-16 20:15 | NUR ---
KETAMINE GTT AND CISATRACURIUM GTT STARTED AT THIS TIME PER DRS ORDERS. HALDOL GTT DISCONTINUED PER DRS ORDERS.
[2020-03-16 20:45] LABS: BUN 27 mg/dl (7-24); CHLORIDE 112 mmol/L (98-107); CREATININE 0.95 mg/dL (0.70-1.30); POTASSIUM 4.6 mmol/L (3.5-5.1); SODIUM 145 mmol/L (136-145)
--- NOTE | 2020-03-16 21:30 | NUR ---
TYLENOL SUPPOSITORY GIVEN FOR ELEVATED TEMPERATURE OF 100.8
[2020-03-16 21:47] LABS: ABG BASE EXCESS -0.1 mmol/L (-2.0-2.0); ARTERIAL BLOOD GAS PH 7.383 (7.35-7.45)
--- NOTE | 2020-03-16 22:02 | NUR ---
SPOKE TO DR BOBO REGARDING BMP RESULTS. NO NEW ORDERS
[2020-03-17] VITALS (12 sets, daily range): BP systolic 109–162; BP diastolic 50–89
[2020-03-17 05:47] LABS: ARTERIAL BLOOD GAS PH 7.398 (7.35-7.45)
[2020-03-17 05:51] LABS: HEMATOCRIT 40.3 % (42.0-52.0); MEAN CELL VOLUME 90.8 fl (80.0-94.0); MEAN CORPUSCULAR HGB 28.6 pg (27.0-31.0); MEAN CORPUSCULAR HGB CONC 31.5 g/dl (33.0-37.0); MEAN PLATELET VOLUME 10.2 fl (9.6-12.3); PLATELET COUNT AUTOMATED 730 10*3/uL (130-400); RED BLOOD COUNT 4.44 10*6/uL (4.50-5.90); RED CELL DISTRI WIDTH 14.1 % (0-14.5); WHITE BLOOD COUNT 23.5 10*3/uL (4.8-10.8)
[2020-03-17 06:01] LABS: ALBUMIN 3.1 gm/dl (3.1-4.5); ALKALINE PHOSPHATASE 152 U/L (45-117); BUN 27 mg/dl (7-24); CHLORIDE 113 mmol/L (98-107); CREATININE 1.01 mg/dL (0.70-1.30); LDH 304 U/L (87-241); POTASSIUM 4.7 mmol/L (3.5-5.1); PREALBUMIN 38 mg/dl (20-40); SGOT/AST 56 IU/L (3-35); SGPT/ALT 214 U/L (12-78); SODIUM 147 mmol/L (136-145); TOTAL PROTEIN 7.5 gm/dL (6.4-8.2); TRIGLYCERIDES 341 mg/dl (<150)
[2020-03-17 06:25] LABS: PLATELET SUFFICIENCY HIGH (NORMAL); POLYCHROMASIA SLIGHT; ROULEAUX SLIGHT; TOTAL CELLS COUNTED 100 #CELLS
--- NOTE | 2020-03-17 07:06 | NUR ---
Shift chart check completed.24 HR chart check completed.
--- NOTE | 2020-03-17 08:36 | NUR ---
ON ASSESSMENT PT REMAINS PRONED IN SWIMMERS POSITION. ADEQUATELY CALM ON KETAMINE AT 3MCG/KG/MIN AND NIMBEX AT 1.5MCG/KG/MIN. PULMOCARE AT 20/HR. LUCIANO PATENT CLEAR CHRIS. TEMP 100.8 VIA CONTINUOUS PROBE. ARTERIAL LINE AND MLC INTACT. MONITOR ZEROED. SEE ALL APPROPRIATE INTERVENTIONS.
[2020-03-17 12:18] LABS: ABG BASE EXCESS 1.2 mmol/L (-2.0-2.0); ARTERIAL BLOOD GAS PH 7.379 (7.35-7.45)
--- NOTE | 2020-03-17 12:24 | NUR ---
DR STINSON HAS VISITED. REVIEW OF LABS/CULTURES AND MEDICATIONS. NO NEW ORDERS DR MENESES HAD VISITED EARLIER. BLOOD CULTURES BEING DONE. AT 1130 PT HAS BEEN UNPRONED. WHEN PLACED ONTO HIS BACK THERE WAS A LARGE AMOUNT OF TUBE FEEDING FOUND ON LINENS AND BED. NONE SUCTIONED FROM MOUTH OR ETT. ?DISLODGED TUBE VS DISCONNECT FROM FEEDING TUBING. COMPLETE BEDBATH GIVEN. NIMBEX AND KETAMINE DRIPS CONTINUE. TYLENOL HAS BEEN GIVEN FOR TEMP ELEVATION. SEE ALL APPROPRIATE INTERVENTIONS.
--- NOTE | 2020-03-17 14:26 | NUR ---
SKIN TEAR NOTED TO RIGHT CHEST. SMALL FLUID FILLED BLISTER NOTED NEXT TO SKIN TEAR. AREA CLEANSED AND SKIN PREP APPLIED. LEFT OPEN TO AIR. DR MENESES NOTIFIED AND STATES OK.
[2020-03-17 15:20] LABS: BILIRUBIN NEGATIVE (NEGATIVE); BLOOD 3+ (NEGATIVE); CLARITY SL CLOUDY (CLEAR); COLOR YELLOW (YELLOW); GLUCOSE NEGATIVE (NEGATIVE); KETONE NEGATIVE (NEGATIVE); LEUKO ESTERASE NEGATIVE (NEGATIVE); NITRITE NEGATIVE (NEGATIVE); RBC TNTC rbc/hpf (0-2); UROBILINOGEN 0.2 E.U./dl (0.2-1.0)
[2020-03-17 15:21] LABS: BACTERIA 1+
--- NOTE | 2020-03-17 17:25 | NUR ---
TYLENOL VIA OGT FOR TEMP ELEVATION. KETAMINE DRIP TITRATED TO 3MCG/KG/MIN. ART LINE TUBING/DRESSING CHANGED. PT POSITIONED FOR COMFORT.
--- NOTE | 2020-03-17 20:00 | NUR ---
PT RESTING IN BED WITH EYES CLOSED, AWAKENS WITH VERBAL STIMULATION. ENDOTUBE PATENT, TIES SECURE, VENT SETTINGS VERIFIED AND FUNCTIONING WITHOUT DIFFICULTY. OGT PATENT AND PLACEMENT VERIFIED, TF INFUSING WITHOUT DIFFICULTY AND KEN WELL. LEFT IJ MLC PATENT, DRESSING DRY AND INTACT. KETAMINE INFUSING ORDERED AND EFFECTIVE FOR SEDATION. RIGHT ART LINE PATENT, DRESSING DRY AND INTACT, FLUSHED WITH EASE. LUCIANO PATENT AND DRAINING WITHOUT DIFFICULTY. PT T 101.8(R) AND MEDICATED WITH TYLENOL PER PRN ORDER. NO ACUTE DISTRESS NOTED.
--- NOTE | 2020-03-17 22:30 | NUR ---
PT TREMORING AND HR INTO 140'S. ALSO INFORMED OF T 102.4(R). NEW ORDER FOR COOLING BLANKET AND TO RESUME NIMBEX.
--- NOTE | 2020-03-17 22:45 | NUR ---
NIMBEX TITRATED UP AND PT APPEARS TO BE CALMING DOWN. TREMORS HAVE DECREASED AND PT IS RESTING AT THIS TIME. ICE BAGS PLACED UNDER ARM PITS, GROIN AREA, AND BACK OF NECK. NO COOLING BLANKET AVAILABLE.
[2020-03-18] VITALS (13 sets, daily range): BP systolic 107–154; BP diastolic 62–92
--- NOTE | 2020-03-18 02:53 | NUR ---
02:24 PT PLACED ON RT SIDE. SPO2 89% THEREFORE, FIO2 INCREASED TO 50% SPO2 INCREASED TO 92%
[2020-03-18 04:31] LABS: BASO % 0.3 % (0.0-1.0); EOS # 0.1 10*3/uL (0.0-0.4); EOS % 0.3 % (1.0-4.0); HEMATOCRIT 39.6 % (42.0-52.0); LYMPH # 1.5 10*3/uL (1.3-4.4); LYMPH % 10.6 % (27.0-41.0); MEAN CELL VOLUME 92.5 fl (80.0-94.0); MEAN CORPUSCULAR HGB CONC 31.3 g/dl (33.0-37.0); MEAN PLATELET VOLUME 10.2 fl (9.6-12.3); MONO # 1.2 10*3/uL (0.1-1.0); MONO % 8.1 % (3.0-9.0); NEUT # 11.5 10*3/uL (2.3-7.9); NEUT % 78.8 % (47.0-73.0); PLATELET COUNT AUTOMATED 693 10*3/uL (130-400); RED BLOOD COUNT 4.28 10*6/uL (4.50-5.90); RED CELL DISTRI WIDTH 14.5 % (0-14.5); WHITE BLOOD COUNT 14.5 10*3/uL (4.8-10.8)
[2020-03-18 04:47] LABS: ALBUMIN 2.9 gm/dl (3.1-4.5); ALKALINE PHOSPHATASE 154 U/L (45-117); BUN 28 mg/dl (7-24); CHLORIDE 116 mmol/L (98-107); CREATININE 0.88 mg/dL (0.70-1.30); LDH 314 U/L (87-241); POTASSIUM 3.9 mmol/L (3.5-5.1); SGOT/AST 105 IU/L (3-35); SGPT/ALT 221 U/L (12-78); SODIUM 148 mmol/L (136-145); TOTAL PROTEIN 7.6 gm/dL (6.4-8.2)
[2020-03-18 04:58] LABS: PREALBUMIN 36 mg/dl (20-40)
[2020-03-18 05:02] LABS: CPK 1559 U/L (39-308)
[2020-03-18 05:30] LABS: ABG BASE EXCESS 1.2 mmol/L (-2.0-2.0); ARTERIAL BLOOD GAS PH 7.424 (7.35-7.45)
--- NOTE | 2020-03-18 06:00 | NUR ---
PT RESTING IN BED WTIH EYES CLOSED. NO ACUTE DISTRESS OR DISCOMFORT NOTED AT THIS TIME. TYLENOL AND ICE BAGS EFFECTIVE FOR TEMP.
--- NOTE | 2020-03-18 08:00 | NUR ---
AM ASSESSMENT DONE. REMAINS ON NIBNEX AND KETAMINE GTTS. SLIGHT TEMORS OF RIGHT ARM AND HAND NOTED. SEDATION OFF TO CHECK PATIENTS ALERTNESS. OPENS EYES TO VERBAL COMMANDS. WRIST RESTRAINTS ON TO PERVENT SELF EXTUBATION. CIRCULATION GOOD EXTREMITIES WARM TO TOUCH AND PINK. LUCIANO PATENT FOR CHRIS URINE. OGT CHECKED FOR PLACEMENT WITH AIR BOLUS. PULMACARE INFUSING RATE INCREASED TO 50CC/HR. ABD SOFT AND DISTENDED WITH HYPOACTIVE BS NOTED. SCD ON FOR DVT PREVENTION. RIGHT RADIAL ARTERIAL LINE ZERO WITH GOOD WAVE FORM. LIJ DRESSING CHANGED. ALL LINES REMAIN PATENT WITH GOOD BLOOD RETURN. REPOSITIONED FOR COMFORT. RANDELL RIOS RN
--- NOTE | 2020-03-18 10:00 | NUR ---
DR. BOBO HERE REVIEWED LABS AND ORDERS REC'D. RANDELL RIOS RN
--- NOTE | 2020-03-18 10:15 | NUR ---
JORDON POSEY [id number] Please refer to the physician's history and physical for past medical history, comorbid conditions, and allergies. Diagnosis: NAUSEA VOMITING DIARRHEA EXPOSURE TO COVID-19 VIRU Ricco Score: 16,AT RISK WOUND DESCRIPTIONS: Wound Number: 1 & 2 Location of the wound: right chest Type of wound: stage 2 Thickness: Partial Size: 2.5cm x 5cm x 0.1cm Tunneling: none Undermining: none Sinus Tract: none Presence of Exudate: Serous Amount: Light Color: Red Odor: None Periwound Skin Appearance: Normal Wound edges: approximated Pain (associated with wound): denied at time of assessment How does patient state this happened? patient unsure how this happened. Area discovered when patient was unprone 03/17/20 per staff. Surface the patient is resting on: Position Pro SKIN PREVENTION RECOMMENDATION: 1. Pressure redistribution support surface as appropriate 2. Elevate heels 3. Remove boots/TEDS every shift and reapply 4. Head of bed 30 degrees as tolerated 5. Assess nutrition and hydration 6. Manage moisture 7. Avoid the use of containment devices while in bed 8. Use absorptive products on surfaces limit layers of linens on bed 9. Turn and reposition every 1-2 hours in bed and every 1 hour in chair as tolerated 10. Weight shifts every 15 minutes while up in chair 11. Offloading with pillows or device to keep heels elevated off bed 12. Monitor skin at least every shift 13. Inspect under medical devices twice a day WOUND TREATMENT RECOMMENDATIONS: Stage 2 guidelines: Cleanse right chest with nss apply sureprep to wound allow to dry and leave open to air.
--- NOTE | 2020-03-18 10:37 | NUR ---
Dr. Jefferson notified of wound care orders needed.
--- NOTE | 2020-03-18 10:48 | NUR ---
K-LYTE 40MEQ GIVEN ORDERED. RANDELL RIOSRN
--- NOTE | 2020-03-18 10:55 | NUR ---
PRE-MEDS BENADRYL AND SOLU-FLETCHER GIVEN BEFORE STARTING ACTERMRA. RANDELL RIOS RN
--- NOTE | 2020-03-18 12:40 | NUR ---
SUCTIONED FOR LARGE AMT OF ORAL MUCOUS. AIR LEAK NOTED AROUND TUBE. RESP HERE ADDED MORE AIR TO BALLOON--CONTINUE TO HEAR AIR LEAK AROUND TUBE. ANESTHESIA CALLED TO EXCHANGE ENDOTUBE. RANDELL RIOS,
--- NOTE | 2020-03-18 12:41 | NUR ---
PT REMAINS ON VENT, DISCHARGE PLANS UNDECIDED AT THIS TIME.
--- NOTE | 2020-03-18 13:00 | NUR ---
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 EXCHANGE ENDOTUBE WITH #8 FR ENDOTUBE OVER BOUGIE. # 16 FR OGT REINSERTED WITHOUT DIFFUCULTY. ENDOTUBE 27CM AT LIP AND OGT 65 CM AT LIP. PATIENT TOLERATED WELL. RANDELL RIOS RN
--- NOTE | 2020-03-18 13:30 | NUR ---
CXR DONE TO CONFIRM PLACEMENT OF ENDOTUBE AND OGT. RANDELL RIOS RN
[2020-03-18 16:52] LABS: ABG BASE EXCESS 1.5 mmol/L (-2.0-2.0); ARTERIAL BLOOD GAS PH 7.445 (7.35-7.45)
[2020-03-18 19:31] LABS: ABG BASE EXCESS 1.4 mmol/L (-2.0-2.0); ARTERIAL BLOOD GAS PH 7.412 (7.35-7.45)
--- NOTE | 2020-03-18 19:57 | NUR ---
PATIENT ANXIOUS. NODS NO WHEN ASKED IF BREATHING OK. AIR SOUND NOTED DURING RESPIRATIONS. RESP THERAPY IN AN ADDED AIR TO ETT BALLOON. TIDAL VOLUMS IMPROVED. INCREASE RESP RATE 32 AND HEART RATE 132. AFTER CHANGES HEART RATE 122 BUT RR 32. REPOSITIONED AFTER CLEANING AND SUCTIONING MOUTH. PHYSICAL AND EMOTIONAL SUPPORT PROVIDED. RESP THERAPY WILL BE CONTACTING DR BOBO AND I WILL UPDATE HIM WITH CLIENT STATUS. WILL MONITOR CLOSELY
--- NOTE | 2020-03-18 20:31 | NUR ---
RESTING AT THIS TIME. STILL TACHACARDIC AND TACHAPENIC BUT IMPROVED. WILL CONTINUE TO MONITOR.
--- NOTE | 2020-03-18 22:18 | NUR ---
TURNED FOR COMFORT. LESS ANXIETY THIS TURN. SUCTIONED SMALL AMOUNT FLUID FROM ORAL CAVITY. WILL CONTINUE TO MONITOR
[2020-03-19] VITALS (12 sets, daily range): BP systolic 110–147; BP diastolic 70–87
--- NOTE | 2020-03-19 02:15 | NUR ---
24 HR chart check completed.
[2020-03-19 04:47] LABS: ABG BASE EXCESS 2.1 mmol/L (-2.0-2.0); ARTERIAL BLOOD GAS PH 7.439 (7.35-7.45)
--- NOTE | 2020-03-19 04:53 | NUR ---
COMPLETE BEDBATH AND HAIR WASH COMPLETED. REPOSITIONED, HOB UP
[2020-03-19 05:58] LABS: CHLORIDE 118 mmol/L (98-107); POTASSIUM 3.8 mmol/L (3.5-5.1); SODIUM 151 mmol/L (136-145)
[2020-03-19 06:08] LABS: ALBUMIN 2.7 gm/dl (3.1-4.5); ALKALINE PHOSPHATASE 134 U/L (45-117); BUN 30 mg/dl (7-24); CREATININE 0.92 mg/dL (0.70-1.30); LDH 275 U/L (87-241); PREALBUMIN 33 mg/dl (20-40); SGOT/AST 79 IU/L (3-35); SGPT/ALT 196 U/L (12-78); TOTAL PROTEIN 6.9 gm/dL (6.4-8.2)
--- NOTE | 2020-03-19 06:12 | NUR ---
AWAKE AND RESTLESS. REORIENTATION TO TIME AND PLACE LAST A FEW MINUTES. DILAUDID GIVEN PER ORDERS. EMOTIONAL SUPPORT GIVEN
[2020-03-19 06:18] LABS: BASO # 0.1 10*3/uL (0.0-0.1); BASO % 0.6 % (0.0-1.0); EOS # 0.1 10*3/uL (0.0-0.4); EOS % 1.2 % (1.0-4.0); LYMPH # 3.3 10*3/uL (1.3-4.4); LYMPH % 35.5 % (27.0-41.0); MEAN CELL VOLUME 92.5 fl (80.0-94.0); MEAN CORPUSCULAR HGB 28.3 pg (27.0-31.0); MEAN CORPUSCULAR HGB CONC 30.5 g/dl (33.0-37.0); MEAN PLATELET VOLUME 10.9 fl (9.6-12.3); MONO # 1.1 10*3/uL (0.1-1.0); MONO % 11.7 % (3.0-9.0); NEUT # 4.6 10*3/uL (2.3-7.9); NEUT % 49.7 % (47.0-73.0); PLATELET COUNT AUTOMATED 656 10*3/uL (130-400); RED CELL DISTRI WIDTH 14.5 % (0-14.5); WHITE BLOOD COUNT 9.3 10*3/uL (4.8-10.8)
--- NOTE | 2020-03-19 07:39 | NUR ---
Shift chart check completed.24 HR chart check completed.
--- NOTE | 2020-03-19 07:52 | NUR ---
NOTIFIED OF POTASSIUM LEVEL, NEW ORDERS RECIEVED AND REPEATED BACK FOR VERIFICATION.
[2020-03-19 11:13] LABS: ABG BASE EXCESS 0.5 mmol/L (-2.0-2.0); ARTERIAL BLOOD GAS PH 7.433 (7.35-7.45)
--- NOTE | 2020-03-19 13:27 | NUR ---
TALKED WITH PT BROTHER ABIDA. HE IS GOING TO TALK TO OTHER FAMILY MEMBERS ABOUT WHAT FACILITY THAT THEY WOULD WANT PT TO GO TO IF NEEDED ON DISCHARGE AND CALL ME BACK. WILL CONTINUE TO FOLLOW.
[2020-03-19 15:18] LABS: ABG BASE EXCESS 0.3 mmol/L (-2.0-2.0); ARTERIAL BLOOD GAS PH 7.444 (7.35-7.45)
--- NOTE | 2020-03-19 15:25 | NUR ---
PT HAS BEEN ALERT, ORIENTED, COMMUNICATING VIA HAND SIGNALS/SUDANESE SIGN LANGUAGE. HE'S ONLY BEEN TREMULOUS WHEN HE'S BEEN INCONTINENT WHICH HAS BEEN TWICE. HE'S COOPERATIVE, HELPING TO REPOSITION. VERSED AT 2MG/HR AND KETAMINE AT 3MCG/KG/MIN. GARCIA CLARKE, JIHAN, AND SHANTELL HAVE ALL VISITED TODAY. RESPIRATORY HAS BEEN TITRATING VENT ACCORDING TO DR BOBO'S DIRECTION. SEE ALL APPROPRIATE INTERVENTIONS.
--- NOTE | 2020-03-19 15:32 | NUR ---
ARTERIAL LINE HAS BEEN OOZING AT THE INSERTION SITE TODAY. DRESSING HAS BEEN CHANGED AND SATURATED AGAIN. DR MENDEZ NOTIFIED AND ORDERS RECEIVED.
--- NOTE | 2020-03-19 20:35 | NUR ---
PATIENT RESTING WITH EYES CLOSED, EASILY AWAKENS TO VOICE. NODS HEAD APPROPRIATELY WHEN ASKED QUESTIONS. RN REORIENTERD PATIENT TO DATE TIME AND PLACE. PATIENT NODS UNDERSTANDING. SHAKES HEAD NO WHEN ASKED IF HE HAS ANY COMPLAINTS. GTT'S INFUSING PER DRS ORDERS. PATIENT APPEARS CALM WITH EYES OPEN RN LEAVES ROOM
[2020-03-20] VITALS (11 sets, daily range): BP systolic 120–166; BP diastolic 64–84
--- NOTE | 2020-03-20 04:15 | NUR ---
Patient resting quietly with no c/o discomfort. Respirations easy and regular. Vital signs stable. No overt distress. GTT'S CONTINUE PER DR HERNANDEZ. KATHERINE MCCLAIN
[2020-03-20 04:45] LABS: BASO % 0.6 % (0.0-1.0); EOS # 0.2 10*3/uL (0.0-0.4); EOS % 4.7 % (1.0-4.0); HEMATOCRIT 33.4 % (42.0-52.0); LYMPH # 2.2 10*3/uL (1.3-4.4); LYMPH % 42.5 % (27.0-41.0); MEAN CELL VOLUME 90.8 fl (80.0-94.0); MEAN CORPUSCULAR HGB 28.5 pg (27.0-31.0); MEAN CORPUSCULAR HGB CONC 31.4 g/dl (33.0-37.0); MEAN PLATELET VOLUME 9.9 fl (9.6-12.3); MONO # 0.6 10*3/uL (0.1-1.0); NEUT % 39.4 % (47.0-73.0); PLATELET COUNT AUTOMATED 474 10*3/uL (130-400); RED BLOOD COUNT 3.68 10*6/uL (4.50-5.90); RED CELL DISTRI WIDTH 14.3 % (0-14.5); WHITE BLOOD COUNT 5.1 10*3/uL (4.8-10.8)
[2020-03-20 04:59] LABS: ALBUMIN 2.7 gm/dl (3.1-4.5); ALKALINE PHOSPHATASE 120 U/L (45-117); BUN 30 mg/dl (7-24); CHLORIDE 120 mmol/L (98-107); CREATININE 0.81 mg/dL (0.70-1.30); LDH 232 U/L (87-241); POTASSIUM 3.4 mmol/L (3.5-5.1); SGOT/AST 72 IU/L (3-35); SGPT/ALT 203 U/L (12-78); SODIUM 150 mmol/L (136-145); TOTAL PROTEIN 6.4 gm/dL (6.4-8.2)
[2020-03-20 05:01] LABS: CPK 634 U/L (39-308); PREALBUMIN 38 mg/dl (20-40)
[2020-03-20 05:09] LABS: ABG BASE EXCESS 1.5 mmol/L (-2.0-2.0); ARTERIAL BLOOD GAS PH 7.48 (7.35-7.45)
--- NOTE | 2020-03-20 08:00 | NUR ---
PAITENT REMAINS INTUBATED AND LIGHTLY SEDATED WITH VERSED AND KETAMINE DRIPS. ET TUBE 27 @ LIP POX 94% FIO2 25%. SUCTIONED MOD AMNT SPUTUM ORALLY AND MINIMAL WHITE VIA ET TUBE. OSMOLITE @ 50 HR VIA OGT. ABD SOFT. NO EDEMA NOTED. R ART LINE ZEROED AND PATENT. RECTAL PROBE PATENT AND PATIENT IS AFEBRILE. AC26,PEEP 9, TV 500.
[2020-03-20 13:27] LABS: ABG BASE EXCESS 0.6 mmol/L (-2.0-2.0); ARTERIAL BLOOD GAS PH 7.468 (7.35-7.45)
--- NOTE | 2020-03-20 14:15 | NUR ---
PEEP DECREASED TO +[address] BOBO.
--- NOTE | 2020-03-20 15:35 | NUR ---
OK TO USE RIJ NEW FROM TODAY PER DR MENDEZ. LIJ AND R ART LINE REMOVED. NEW L ART LINE.
--- NOTE | 2020-03-20 18:56 | NUR ---
Shift chart check completed.24 HR chart check completed.
[2020-03-20 19:08] LABS: BUN 28 mg/dl (7-24); CHLORIDE 119 mmol/L (98-107); CREATININE 0.77 mg/dL (0.70-1.30); POTASSIUM 4.1 mmol/L (3.5-5.1); SODIUM 152 mmol/L (136-145)
--- NOTE | 2020-03-20 19:54 | NUR ---
DR BOBO MADE AWARE OF REPEAT BMP. ORDERS RECEIVED.
[2020-03-21] VITALS (11 sets, daily range): BP systolic 97–148; BP diastolic 58–653
--- NOTE | 2020-03-21 00:15 | NUR ---
AT THE BEGINNING OF THE SHIFT PT HAD LARGE AMOUNT OOZING FROM NEW RIJ MLC. DRESSING REMOVED. THERE WAS OOZING FROM THE ACTUAL INSERTION SITE AND FROM BELOW IT ALSO (POSSIBLE PREVIOUS ATTEMPT?). GAUZE DRESSING WAS APPLIED AT THAT TIME AND AGAIN IT'S SATURATED AGAIN. DR EVERETT HAS BEEN NOTIFIED. KETAMINE DRIP CONTINUES AT 3MCG/KG/MIN AND VERSED AT 2MG/HR. PT GETS VERY ANXIOUS AND I'VE NOT TURNED THE DRIP DOWN TO 1MG/HR YET. SEE ALL APPROPRIATE INTERVENTIONS.
--- NOTE | 2020-03-21 03:02 | NUR ---
RIJ MLC DRESSING AGAIN SATURATED WITH BLOOD. REMOVED. VASELINE GAUZE APPLIED AND ROLLED GAUZE UNDER TEGADERM. ATTEMPT TO APPLY SOME PRESSURE TO SITE BUT DIFFICULT DUE TO LOCATION. COMPLETE BED BATH AND LINEN CHANGE. THE NECK AREA PADDED WITH PROTECIVE PADS TO CONTAIN EXTRA DRAINAGE. PT VERY COOPERATIVE, ASSISTING TO TURN. GRABS ARE HANDS TO THANK US FOR CLEANING HIM UP.
[2020-03-21 05:22] LABS: ABG BASE EXCESS -1.2 mmol/L (-2.0-2.0); ARTERIAL BLOOD GAS PH 7.41 (7.35-7.45)
[2020-03-21 05:53] LABS: ALBUMIN 2.7 gm/dl (3.1-4.5); ALKALINE PHOSPHATASE 107 U/L (45-117); BUN 26 mg/dl (7-24); CHLORIDE 119 mmol/L (98-107); CREATININE 0.74 mg/dL (0.70-1.30); LDH 264 U/L (87-241); POTASSIUM 3.8 mmol/L (3.5-5.1); SGOT/AST 74 IU/L (3-35); SGPT/ALT 211 U/L (12-78); SODIUM 148 mmol/L (136-145); TOTAL PROTEIN 6.2 gm/dL (6.4-8.2)
[2020-03-21 06:25] LABS: BASO # 0.1 10*3/uL (0.0-0.1); BASO % 0.8 % (0.0-1.0); EOS # 0.2 10*3/uL (0.0-0.4); EOS % 3.3 % (1.0-4.0); LYMPH # 2.8 10*3/uL (1.3-4.4); LYMPH % 44.1 % (27.0-41.0); MEAN CELL VOLUME 91.2 fl (80.0-94.0); MEAN CORPUSCULAR HGB 28.7 pg (27.0-31.0); MEAN CORPUSCULAR HGB CONC 31.5 g/dl (33.0-37.0); MEAN PLATELET VOLUME 11.5 fl (9.6-12.3); MONO # 0.8 10*3/uL (0.1-1.0); MONO % 12.5 % (3.0-9.0); NEUT # 2.4 10*3/uL (2.3-7.9); NEUT % 38.2 % (47.0-73.0); PLATELET COUNT AUTOMATED 476 10*3/uL (130-400); RED BLOOD COUNT 3.62 10*6/uL (4.50-5.90); RED CELL DISTRI WIDTH 14.4 % (0-14.5); WHITE BLOOD COUNT 6.3 10*3/uL (4.8-10.8)
--- NOTE | 2020-03-21 06:49 | NUR ---
PT HAS BEEN INCONTINENT 3 TIMES THIS SHIFT (ONE LARGE AND TWO SMALL) BUT HE BECOMES VERY AGITATED WHEN HE DOES IT. THE MLC DRESSING IS SATURATED WITH BLOOD STILL. PT IS SLEEPING VERY EASILY AT THIS TIME.
--- NOTE | 2020-03-21 08:00 | NUR ---
ASSESSMENT COMPLETE. PT REMAINS TO OOZE BLOOD TO RIJ, REINFORCED WITH 4X4. REMAINS SEDATED WITH KETAMINE AND VERSED. OPENS EYES, AND ANSWERS APPROP. AFEBRILE, VSS. SEE ASSESSMENT.
--- NOTE | 2020-03-21 09:00 | NUR ---
DR JIHAN LARA. REVIEWED ALL CARE, LABS. NEW ORDERS RECEIVED. FOR LASIX, K-RUN AND TO CHANGE OGT TO NGT. THEN X-RAY. HOLD AM LOVENOX. CALL IF BLEEDING PERSISTS. CPAP PER RESP WITH ABG'S.
--- NOTE | 2020-03-21 10:30 | NUR ---
ASSISTED DR. MENDEZ WITH SUTURING RIJ. MONITOR FOR HEMATOMA. THEN APPLY OCCLUSIVE DRESSING. 1230- 4X4 RENMAINS DRY TO RIJ, NO HEMATOMA NOTED. OCCLUSIVE DRESSING APPLIED.
--- NOTE | 2020-03-21 12:30 | NUR ---
OGT REMOVED. DOBHOFF INSERTED LEFT NARE. TOLERATED WELL. MEASURED TO 65 LENGTH. WILL GET CXR FOR CONFIRMATION.
[2020-03-21 14:26] LABS: ABG BASE EXCESS 0.5 mmol/L (-2.0-2.0); ARTERIAL BLOOD GAS PH 7.441 (7.35-7.45)
[2020-03-21 20:31] LABS: ABG BASE EXCESS 1.1 mmol/L (-2.0-2.0); ARTERIAL BLOOD GAS PH 7.482 (7.35-7.45)
--- NOTE | 2020-03-21 22:42 | NUR ---
OG PLACED BY DAYLIGHT WAS NOT IN THE APPROPRIATE PLACE. I DC IT AND REPLACED WITH A #16 OG. VERIFIED BY AIR BOLUS AND AWAITING CHESTXRAY. PT TOLERATED WELL.
--- NOTE | 2020-03-21 23:16 | NUR ---
Shift chart check completed.24 HR chart check completed.
[2020-03-22] VITALS (13 sets, daily range): BP systolic 112–180; BP diastolic 52–80
--- NOTE | 2020-03-22 00:57 | NUR ---
ON ASSESSMENT PATIENT SITTING UP IN BED, WATCHING TV. HE'S WRITING NOTES, ABLE TO COMMUNICATE HIS NEEDS. NS CONTINUES AT 70/HR VIA RIJ ML. THE PROXIMAL PORT WON'T FLUSH, THE MIDDLE PORT IS SLUGGISH. NO FURTHER BLEEDING LAST NIGHT. LUCIANO PATENT CHRIS URINE. CXR FROM EARLIER IS BACK, NGT TIP IN GASTRIC ANTRUM. RESTARTING OSMOLITE AT 50/HR. SEE ALL APPROPRIATE INTERVENTIONS.
--- NOTE | 2020-03-22 02:55 | NUR ---
STARTING AROUND 0200 PATIENT BECAME TACHYCARDIC, TACHYPNEIC, AND ANXIOUS. PLACED ON BEDPAN BUT DID NOT MOVE HIS BOWELS. HE DESATTED TO MID 80'S. RESPIRATORY PLACED HIM BACK ON A/C AT 100%. LARGE AMOUNT OF ETT SECRETIONS WERE SUCTIONED. IV DILAUDID 0.5MG GIVEN FOR ANXIETY. FAN TO ROOM. PT TURNED SIDE TO SIDE WITH CHEST CLAPPING AND SUCTIONING. AT THIS TIME HE'S RESTING EASILY WITH HR 76, PULSE OX 94%. ABG'S DONE.
[2020-03-22 02:57] LABS: ABG BASE EXCESS -0.9 mmol/L (-2.0-2.0); ARTERIAL BLOOD GAS PH 7.402 (7.35-7.45)
--- NOTE | 2020-03-22 03:04 | NUR ---
DR BOBO NOTIFIED OF THE EVENTS OF PAST HOUR. ORDERS RECEIVED.
[2020-03-22 05:45] LABS: ABG BASE EXCESS 0.2 mmol/L (-2.0-2.0); ARTERIAL BLOOD GAS PH 7.408 (7.35-7.45)
[2020-03-22 06:06] LABS: BASO # 0.1 10*3/uL (0.0-0.1); BASO % 0.7 % (0.0-1.0); EOS # 0.2 10*3/uL (0.0-0.4); EOS % 1.7 % (1.0-4.0); HEMATOCRIT 34.8 % (42.0-52.0); LYMPH # 2.3 10*3/uL (1.3-4.4); LYMPH % 26.1 % (27.0-41.0); MEAN CELL VOLUME 90.4 fl (80.0-94.0); MEAN CORPUSCULAR HGB 28.6 pg (27.0-31.0); MEAN CORPUSCULAR HGB CONC 31.6 g/dl (33.0-37.0); MONO # 0.8 10*3/uL (0.1-1.0); MONO % 8.5 % (3.0-9.0); NEUT # 5.5 10*3/uL (2.3-7.9); PLATELET COUNT AUTOMATED 450 10*3/uL (130-400); RED BLOOD COUNT 3.85 10*6/uL (4.50-5.90); RED CELL DISTRI WIDTH 13.8 % (0-14.5); WHITE BLOOD COUNT 8.9 10*3/uL (4.8-10.8)
[2020-03-22 06:17] LABS: ALBUMIN 2.9 gm/dl (3.1-4.5); BUN 25 mg/dl (7-24); CHLORIDE 114 mmol/L (98-107); CREATININE 0.76 mg/dL (0.70-1.30); POTASSIUM 4.2 mmol/L (3.5-5.1); SGOT/AST 106 IU/L (3-35); SGPT/ALT 282 U/L (12-78); SODIUM 145 mmol/L (136-145); TOTAL PROTEIN 6.7 gm/dL (6.4-8.2)
[2020-03-22 06:35] LABS: ALKALINE PHOSPHATASE 111 U/L (45-117); CPK 499 U/L (39-308)
[2020-03-22 06:39] LABS: PREALBUMIN 45 mg/dl (20-40)
--- NOTE | 2020-03-22 08:00 | NUR ---
PT AAOX3. PT IS WRITING NOTES TO STAFF. PT REMAINS INTUBATED. VSS. LUNG ONEAL DIM. SMALL AMOUNT OF WHITE MUCUS SUCTIONED THROUGH ENDOTUBE. RIGHT NARE NGT PLACEMENT VERIFIED WITH AN AIR BOLUS. TUBE FEEDING CONTINUE AT 50CC/HR. ABD. SOFT WITH ACTIVE BOWEL SOUNDS. LUCIANO PATENT FOR CLEAR YELLOW URINE. SCED'S IN PLACE. SOME DEPENDANT EDEMA NOTED. PT EDUCATED ON BRONCHOSCOPY THIS AM. HIS QUESTIONS WERE ANSWERED. WILL CONTINUE TO MONITOR PT.
[2020-03-22 09:24] LABS: ABG BASE EXCESS 0.1 mmol/L (-2.0-2.0); ARTERIAL BLOOD GAS PH 7.42 (7.35-7.45)
--- NOTE | 2020-03-22 11:05 | NUR ---
SPOKE WITH PT BROTHER ABIDA ABOUT PT GOING TO A FACILITY IF NEEDED. HE STATES IT WOULD BE BETTER FOR PT TO COME HOME IF HE CAN, STATES PT HAS SOCIAL ANXIETY AND BIPOLAR AND DOES NOT DO WELL IN CROWDS OR STRANGE PLACES. EXPLAINED THAT IS THE GOAL BUT IF PT WOULD HAVE TO GO TO REHAB WHERE WOULD HE LIKE HIM TO GO. HE STATES THAT HE TALKED TO OTHER FAMILY MEMBERS AND THEY WANT HIM TO GO TO [facility] IF NEEDED. WILL CONTINUE TO FOLLOW.
--- NOTE | 2020-03-22 12:15 | NUR ---
BRONCHOSCOPY COMPLETED. PT PREMEDICATED WITH 5MG VERSED. PT TOLERATED PROCEDURE WELL.
--- NOTE | 2020-03-22 14:10 | NUR ---
PT TOLERATING CPAP WELL AT THIS TIME. WILL CONTINUE TO MONITOR PT.
--- NOTE | 2020-03-22 14:58 | NUR ---
ABG DRAWN FROM ART LINE PER ORDER. PT HAS TOLERATED CPAP WELL.
[2020-03-22 15:16] LABS: ABG BASE EXCESS 0.5 mmol/L (-2.0-2.0); ARTERIAL BLOOD GAS PH 7.446 (7.35-7.45)
--- NOTE | 2020-03-22 15:45 | NUR ---
DR BOBO UPDATED ON ABG RESULTS BY RESP. THERAPIST. NEW ORDERS RECEIVED FROM DR BOBO R/T EXTUBATION TODAY.
--- NOTE | 2020-03-22 15:55 | NUR ---
PT UPDATED ON PLAN OF CARE AND EDUCATED ON EXTUBATION PROCESS. IV SOLUMEDROL GIVEN PER ORDER.
--- NOTE | 2020-03-22 17:24 | NUR ---
Patient extubated on physician's order. 6L NC APPLIED. Pulse oximeter on with alarms set at 10% below patient's baseline. Pharyngeal reflex present prior to extubation. Patient encouraged to cough and deep breathe. Patient observed for skin color and temperature, monitor rhythm, respiratory rate and effort, and level of consciousness. NPO for 24 hours. Patient tolerated procedure WELL. VIKTORIA DUTTON
--- NOTE | 2020-03-22 18:04 | NUR ---
DR BOBO UPDATED ON PT'S CONDITION. NO NEW ORDERS RECEIVED.
[2020-03-22 20:20] LABS: ABG BASE EXCESS -1.2 mmol/L (-2.0-2.0); ARTERIAL BLOOD GAS PH 7.431 (7.35-7.45)
--- NOTE | 2020-03-22 20:44 | NUR ---
PT. RESTING COMFORTABLY. WATCHING TV. NG IN RIGHT NARE HAS PULMOCARE TUBE FEEDING INFUSING ORDERED, NO RESIDUAL NOTED, PLACEMENT CONFIRMED WITH AIR BOLUS. LIJ MLC INTACT, RIGHT ARTERIAL LINE LEVELED, ZEROED AND FLUSHED PER POLICY. LUCIANO CATHETER DRAINING A CLEAR YELLOW URINE. PT. CALM WITH GENERALIZED WEAKNESS NOTED. ZULEIKA MOELLER RN
[2020-03-23] VITALS (8 sets, daily range): BP systolic 124–165; BP diastolic 62–83
--- NOTE | 2020-03-23 01:43 | NUR ---
PT. GIVEN DILAUDID ORDERED FOR RESTLESSNESS AND GENERALIZED ACHES AND PAINS.
--- NOTE | 2020-03-23 01:51 | NUR ---
FACIAL AND CHEST WOUNDS DRESSED ORDERED. PT. REMOVED FACIAL DRESSING, RESTLESS AT TIMES.
[2020-03-23 05:57] LABS: ALBUMIN 3.1 gm/dl (3.1-4.5); BUN 22 mg/dl (7-24); CHLORIDE 110 mmol/L (98-107); CREATININE 0.65 mg/dL (0.70-1.30); LDH 280 U/L (87-241); POTASSIUM 4.1 mmol/L (3.5-5.1); SGOT/AST 93 IU/L (3-35); SGPT/ALT 305 U/L (12-78); SODIUM 140 mmol/L (136-145); TOTAL PROTEIN 6.8 gm/dL (6.4-8.2)
[2020-03-23 06:12] LABS: ALKALINE PHOSPHATASE 132 U/L (45-117)
[2020-03-23 06:16] LABS: BASO % 0.1 % (0.0-1.0); EOS % 0.1 % (1.0-4.0); HEMATOCRIT 33.5 % (42.0-52.0); LYMPH # 1.9 10*3/uL (1.3-4.4); LYMPH % 13.2 % (27.0-41.0); MEAN CELL VOLUME 89.1 fl (80.0-94.0); MEAN CORPUSCULAR HGB CONC 32.5 g/dl (33.0-37.0); MEAN PLATELET VOLUME 11.4 fl (9.6-12.3); MONO # 0.6 10*3/uL (0.1-1.0); MONO % 4.3 % (3.0-9.0); NEUT # 11.4 10*3/uL (2.3-7.9); NEUT % 80.7 % (47.0-73.0); PLATELET COUNT AUTOMATED 473 10*3/uL (130-400); RED BLOOD COUNT 3.76 10*6/uL (4.50-5.90); RED CELL DISTRI WIDTH 13.5 % (0-14.5); WHITE BLOOD COUNT 14.2 10*3/uL (4.8-10.8)
[2020-03-23 06:45] LABS: PREALBUMIN 44 mg/dl (20-40)
--- NOTE | 2020-03-23 08:00 | NUR ---
PATIENT SITTING UP IN BED. ALERT AND ORIENTED. ON O2 @4LNC POX 100%. LUNGS DIMINISHED. RIJ MLC PATENT DRESSING CHANGED. RIGHT NARE NGT PATENT WITH PULMOCARE INFUSING AT 50CC/HR. GAVE PATIENT A SIP OF WATER. PATIENT TOLERATED WELL. LUCIANO PATENT AND DRAINING CLEAR STRAW URINE.
[2020-03-23 08:21] LABS: ABG BASE EXCESS -0.2 mmol/L (-2.0-2.0); ARTERIAL BLOOD GAS PH 7.458 (7.35-7.45)
[2020-03-23 12:05] LABS: ACID FAST SPEC PROCESSING Concentration (.)
--- NOTE | 2020-03-23 14:30 | NUR ---
LEFT RADIAL ART LINE DISCONTINUED. PATIENT ASSISTED OUT OF BED TO CHAIR WITH TWO ASSIST. PATIENT DID VERY WELL. CLEAR LIQUID TRAY GIVEN. NO DIFFICULTIES NOTED.
--- NOTE | 2020-03-23 16:00 | NUR ---
PATIENT ASSISTED BACK TO BED WITH TWO ASSIST WITHOUT DIFFICULTIES.
--- NOTE | 2020-03-23 20:42 | NUR ---
1946 RESTING IN BED IN SUPINE POSITION. EYES CLOSED. APPEARS TO BE SLEEPING. HOB ELEVATED. SIDE RAILS UP X'S 2. CALL LIGHT IN REACH. PULSE OX 95% ON 4L. NO DISTRESS NOTED. NO C/O'S VOICED AT PRESENT. NG INTACT L NARE. TF MAINTAINED. PLACEMENT CONFIRMED WITH AIR BOLUS/ AUSCULTATION. TAKING CLEAR LIQUIDS PO. LUCIANO PATENT AND DRAINING CLEAR YELLOW URINE. BLADDER TRAINING INITIATED.
--- NOTE | 2020-03-23 22:03 | NUR ---
REMAINS WITHOUT C/O'S. RESTING IN BED WATCHING TV. CONDITION GUARDED.
--- NOTE | 2020-03-23 23:00 | NUR ---
ASSUMED CARE FROM STEPHANIE JENSEN. PATIENT IS AWAKE AND ALERT AND RESTING IN BED. DOBBHOFF RESIDUAL CHECKED AND LESS THAN 30CC. PATIENT ANSWERS QUESTIONS APPROPRIATELY. PATIENT ABLE TO GET UP AND PIVOT TO BSC. BED LINENS CHANGED AT THIS TIME. NSR ON MONITOR. SEE ASSESSMENT.
[2020-03-24] VITALS: BP 118/74
--- NOTE | 2020-03-24 00:30 | NUR ---
LUCIANO CATHETER CLAMPED FOR BLADDER TRAINING. WILL MONITOR.
--- NOTE | 2020-03-24 02:42 | NUR ---
LUCIANO UNCLAMPED AT THIS TIME. PATIENT C/O BACK PAIN IN THEIR UPPER BACK RATED A 5/10. PRN TYLENOL GIVEN. PATIENT WAS ABLE TO SWALLOW PILLS WITHOUT DIFFICULTY.
[2020-03-24 04:00] VITALS: BP 118/80
--- NOTE | 2020-03-24 04:30 | NUR ---
PATIENT LUCIANO CLAMPED AGAIN AT THIS TIME. PATIENT LUCIANO WILL BE CLAMPED FOR 4 HOURS. WILL CONTINUE TO MONITOR AND REASSESS.
[2020-03-24 05:18] LABS: ALKALINE PHOSPHATASE 131 U/L (45-117); BUN 23 mg/dl (7-24); CHLORIDE 109 mmol/L (98-107); CREATININE 0.74 mg/dL (0.70-1.30); SGOT/AST 157 IU/L (3-35); SGPT/ALT 415 U/L (12-78); SODIUM 139 mmol/L (136-145); TOTAL PROTEIN 6.4 gm/dL (6.4-8.2)
--- NOTE | 2020-03-24 05:47 | NUR ---
PATIENT PLACED CUE WORKER LIGHT AND SAID HE NEEDED TO USE THE BATHROOM. PATIENT WAS TOLD SOMEONE WOULD BE IN SHORTLY AND TO STAY IN BED. BEFORE PATIENT ATTENDANT COULD GET INTO THE ROOM THE PATIENT WAS UP OUT OF BED AND WAS PIVOTING ONTO THE BEDSIDE COMMODE. PATIENT MADE IT TO THE BS SAFELY BUT NG TUBE WAS PULLED OUT. PATIENT DIDN'T KNOW HOW IT CAME OUT. PATIENT ASKED IF HE WANTED ANOTHER NG TUBE AND REFUSED. PATIENT GIVEN 200CC OF CLEAR LIQUIDS TO DRINK AND NO COUGHING OR DIFFICULTIES NOTED.
[2020-03-24 06:23] LABS: BASO # 0.1 10*3/uL (0.0-0.1); BASO % 0.7 % (0.0-1.0); EOS # 0.2 10*3/uL (0.0-0.4); EOS % 1.8 % (1.0-4.0); HEMATOCRIT 34.1 % (42.0-52.0); LYMPH # 2.9 10*3/uL (1.3-4.4); LYMPH % 28.6 % (27.0-41.0); MEAN CELL VOLUME 90.9 fl (80.0-94.0); MEAN CORPUSCULAR HGB 28.8 pg (27.0-31.0); MEAN CORPUSCULAR HGB CONC 31.7 g/dl (33.0-37.0); MEAN PLATELET VOLUME 11.6 fl (9.6-12.3); MONO # 0.9 10*3/uL (0.1-1.0); MONO % 8.4 % (3.0-9.0); NEUT % 59.3 % (47.0-73.0); PLATELET COUNT AUTOMATED 416 10*3/uL (130-400); RED BLOOD COUNT 3.75 10*6/uL (4.50-5.90); RED CELL DISTRI WIDTH 14.2 % (0-14.5); WHITE BLOOD COUNT 10.1 10*3/uL (4.8-10.8)
[2020-03-24 08:00] VITALS: BP 123/77
--- NOTE | 2020-03-24 08:30 | NUR ---
PATIENT ALERT AND ORIENTED. O2 4LNC. POX 94%. LUNGS DIMINISHED. PATIENT C/O NON-PRODUCTIVE COUGH STILL AT THIS TIME. PATIENT ASSISTED UP TO CHAIR WITH ONE ASSIST. PATIENT DID VERY WELL WITH ONE ASSIST.
--- NOTE | 2020-03-24 11:00 | NUR ---
LUCIANO CATHETER DISCONTINUED. EMPTIED FOR 400CC. PATIENT GIVEN URINAL TO USE. WILL MONITOR.
[2020-03-24 12:00] VITALS: BP 111/79
[2020-03-24 16:00] VITALS: BP 119/65
[2020-03-24 20:00] VITALS: BP 120/62
--- NOTE | 2020-03-24 23:10 | NUR ---
IV DILAUDID ADMINISTERED PER ORDER FOR C/O PAIN IN BACK OF R KNEE/LEG RATED 6/10. WILL MONITOR EFFECTIVENESS. CALL LIGHT IN REACH.
[2020-03-25] VITALS: BP 114/68
--- NOTE | 2020-03-25 00:33 | NUR ---
EARLIER MEDICATION APPEARS EFFECTIVE. PT ASLEEP IN BED. NO S/S OF DISTRESS NOTED. WILL MONITOR. CALL LIGHT IN REACH.
[2020-03-25 03:00] VITALS: BP 119/68
--- NOTE | 2020-03-25 04:30 | NUR ---
Upon discharge recommend patient to follow up for wound care in outpatient setting continue current wound care orders at discharging facility.
[2020-03-25 06:15] LABS: BASO # 0.1 10*3/uL (0.0-0.1); BASO % 0.8 % (0.0-1.0); EOS # 0.3 10*3/uL (0.0-0.4); HEMATOCRIT 33.5 % (42.0-52.0); LYMPH # 3.2 10*3/uL (1.3-4.4); LYMPH % 37.2 % (27.0-41.0); MEAN CELL VOLUME 90.5 fl (80.0-94.0); MEAN CORPUSCULAR HGB 29.2 pg (27.0-31.0); MEAN CORPUSCULAR HGB CONC 32.2 g/dl (33.0-37.0); MEAN PLATELET VOLUME 11.1 fl (9.6-12.3); MONO # 0.9 10*3/uL (0.1-1.0); MONO % 10.2 % (3.0-9.0); NEUT % 47.4 % (47.0-73.0); PLATELET COUNT AUTOMATED 398 10*3/uL (130-400); RED CELL DISTRI WIDTH 14.6 % (0-14.5); WHITE BLOOD COUNT 8.5 10*3/uL (4.8-10.8)
[2020-03-25 06:43] LABS: ALKALINE PHOSPHATASE 120 U/L (45-117); BUN 16 mg/dl (7-24); CHLORIDE 108 mmol/L (98-107); CREATININE 0.97 mg/dL (0.70-1.30); POTASSIUM 3.8 mmol/L (3.5-5.1); SGOT/AST 111 IU/L (3-35); SGPT/ALT 409 U/L (12-78); SODIUM 139 mmol/L (136-145); TOTAL PROTEIN 6.4 gm/dL (6.4-8.2)
[2020-03-25 08:00] VITALS: BP 126/87
--- NOTE | 2020-03-25 08:00 | NUR ---
PHYSICAL THERAPY Screen and PT eval received will follow thank you. Zaynab Luna PT
--- NOTE | 2020-03-25 08:21 | NUR ---
JORDON POSEY [id number] Please refer to the physician's history and physical for past medical history, comorbid conditions, and allergies. Diagnosis: NAUSEA VOMITING DIARRHEA EXPOSURE TO COVID-19 VIRU Ricco Score: 16,AT RISK WOUND DESCRIPTIONS: Wound Number: 1 & 2 Location of the wound: Right chest Type of wound: medical office technologist related pressure injury stage 2 Thickness: Partial Size: 2.1cm x 4.8cm x 0.1cm Tunneling: none Undermining: none Sinus Tract: none Presence of Exudate: Serous Amount: Light Color: Red Odor: None Periwound Skin Appearance: Normal Wound edges: approximated Pain (associated with wound): none at time of assessment How does patient state this happened? pt unable to state how this happened Wound Number: 3 Location of the wound: right cheek Type of wound: medical office technologist related pressure injury (partial thickness) Thickness: Partial Size: 1.2cm x 1.2cm x 0.1cm Tunneling: none Undermining: none Sinus Tract: none Presence of Exudate: Serous Amount: Light Color: Red Odor: None Periwound Skin Appearance: Normal Wound edges: approximated Pain (associated with wound): none at time of assessment How does patient state this happened? pt unsure to state how this happened Wound Number: 4 Location of the wound: left cheek Type of wound: medical office technologist related pressure injury (partial thickness) Thickness: Partial Size: 0.5cm x 0.5cm x 0.1cm Tunneling: none Undermining: none Sinus Tract: none Presence of Exudate: Serous Amount: Light Color: Red Odor: None Periwound Skin Appearance: Normal Wound edges: approximated Pain (associated with wound): none at time of assessment How does patient state this happened? pt unsure how this happened Surface the patient is resting on: Position Pro SKIN PREVENTION RECOMMENDATION: 1. Pressure redistribution support surface as appropriate 2. Elevate heels 3. Remove boots/TEDS every shift and reapply 4. Head of bed 30 degrees as tolerated 5. Assess nutrition and hydration 6. Manage moisture 7. Avoid the use of containment devices while in bed 8. Use absorptive products on surfaces limit layers of linens on bed 9. Turn and reposition every 1-2 hours in bed and every 1 hour in chair as tolerated 10. Weight shifts every 15 minutes while up in chair 11. Offloading with pillows or device to keep heels elevated off bed 12. Monitor skin at least every shift 13. Inspect under medical devices twice a day WOUND TREATMENT RECOMMENDATIONS: Continue orders to right chest D/C skin tear orders Partial thickness guidelines: Cleanse right cheek and left cheek with nss and apply sureprep around the wound hyrdogel to wound bed and cover with dsd every 2 days and prn for soiling.
--- NOTE | 2020-03-25 08:30 | NUR ---
PT RESTING IN BED, REPOSITIONED SELF FOR COMFORT. TOLERATED ROUTINE MED WITH NO PROBLEM. OXYGEN IN USE. NO C/O. CALL LIGHT IN REACH. SEE SHIFT ASSESSMENT.
--- NOTE | 2020-03-25 09:30 | NUR ---
PT ASSISTED UP TO BEDSIDE COMMODE WITH NO PROBLEM. RESTING BACK IN BED. CALL LIGHT IN REACH. BED ALARM ON.
--- NOTE | 2020-03-25 09:33 | NUR ---
Dr. Calderon notified of wound care recommendations.
[2020-03-25 12:00] VITALS: BP 126/84
--- NOTE | 2020-03-25 12:20 | NUR ---
PHYSICAL THERAPY Physical Therapy evaluation completed on 5E with full evaluation to follow. Moderate complexity PT evaluation per chart review and evaluation, [address]. Recommend physical therapy per plan of care and SNF vs. home health upon discharge, pending progression. Thank you for this referral. Mya Pickett,PT,DPT.
--- NOTE | 2020-03-25 15:00 | NUR ---
PT MOVED TO 4NE WITH NO PROBLEM. CALL LIGHT IN REACH. BED ALARM ON.
--- NOTE | 2020-03-25 15:56 | NUR ---
DILAUDID GIVEN FOR COMPLAINTS OF PAIN. WILL MONITOR. SEE MAR
--- NOTE | 2020-03-25 15:58 | NUR ---
Occupational therapy orders received and chart reviewed. Patient admitted for COVID-19 positive. Per discussion with nursing deck supervisor on the fifth floor, Yanely, patient is currently receiving physical therapy only with no further OT indicated at this time. Will hold on an occupational therapy evaluation until further notice from hospitalist or case management. Thank you. Tari Curiel, OTR/L
[2020-03-25 16:00] VITALS: BP 135/91
--- NOTE | 2020-03-25 17:00 | NUR ---
PT SLEEPING IN BED, AWAKENS EASILY. STATES PAIN MEDICATION WAS EFFECTIVE. RATES PAIN BILATERAL LEGS A 4 ON PAIN SCALE 0-10. CALL LIGHT IN REACH. BED ALARM ON.
[2020-03-25 20:00] VITALS: BP 128/83
--- NOTE | 2020-03-25 20:26 | NUR ---
PT C/O PAIN IN L LEG/L THIGH. PT STATES IT FEELS LIKE A "NUMBING" PAIN. PATIENT SHAKING ENTIRE BODY. TOO SOON FOR PRN DILAUDID. RN ENCOURAGED PT TO REPOSITION. ASSISTED UP TO RECLINER CHAIR. PT UNSTEADY, BUT PIVOTS WELL. ELECTRODES/LEADS ADJUSTED. POX RETURNED TO FINGER. PT REQUESTING XANAX. PO XANAX ADMINISTERED PER PRN ORDER. WILL MONITOR EFFECTIVENESS. CALL LIGHT LEFT IN REACH.
--- NOTE | 2020-03-25 20:55 | NUR ---
NOTIFIED OF PATIENT'S C/O L THIGH/LEG PAIN RATED 10/10. DISCUSSED CURRENT PRN MEDICATIONS ORDERED, ELEVATED LFTs, AND XANAX GIVEN AT 2016. AWARE THAT PATIENT HAS CALLED OUT TWICE FOR PAIN MEDICATION SINCE RN IN ROOM AND PRN DILAUDID NOT DUE FOR ANOTHER HOUR. KARLOS STATES HE WILL REVIEW CHART AND PLACE ORDERS NEEDED.
--- NOTE | 2020-03-25 22:09 | NUR ---
PT ASSISTED BACK INTO BED FROM CHAIR. PO OXY-IR ADMINISTERED PER PRN ORDER FOR C/O PAIN IN L LEG RATED 8/10. WILL MONITOR EFFECTIVENESS. CALL LIGHT IN REACH.
[2020-03-26] VITALS: BP 122/87
--- NOTE | 2020-03-26 05:30 | NUR ---
PO OXY IR ADMINISTERED PER PRN ORDER FOR C/O L HIP/LEG RATED 9/10. WILL MONITOR EFFECTIVENESS. CALL LIGHT IN REACH. UNABLE TO DRAW LABS FROM MLC. WILL FLUSH PORTS WITH SALINE & HEPARIN AND ATTEMPT AT LATER TIME.
[2020-03-26 06:07] LABS: ABG BASE EXCESS -1.5 mmol/L (-2.0-2.0); ARTERIAL BLOOD GAS PH 7.386 (7.35-7.45)
--- NOTE | 2020-03-26 06:10 | NUR ---
UNABLE TO DRAW FROM MLC. NO BLOOD RETURN NOTED FROM ANY OF THE 3 PORTS. ORANGE PORT FLUSHED WITH HEPARIN FLUSH. UNABLE TO FLUSH BLUE & WHITE PORTS AT THIS TIME. WILL ATTEMPT TO PULL LABS AT LATER TIME. PO XANAX ADMINISTERED PER REQUEST FOR C/O ANXIETY. WILL MONITOR EFFECTIVENESS.
--- NOTE | 2020-03-26 07:00 | NUR ---
UNABLE TO DRAW LABS VIA MLC. LABS DRAWN VIA VENIPUNCTURE. EARLIER MEDICATIONS EFFECTIVE PER PT. WILL MONITOR. CALL LIGHT IN REACH.
--- NOTE | 2020-03-26 07:05 | NUR ---
WOUND TO R CHEEK AND R CHEST CHANGED PER ORDER.
[2020-03-26 07:19] LABS: BASO % 0.3 % (0.0-1.0); EOS % 0.2 % (1.0-4.0); HEMATOCRIT 30.9 % (42.0-52.0); LYMPH # 1.9 10*3/uL (1.3-4.4); LYMPH % 15.1 % (27.0-41.0); MEAN CELL VOLUME 89.3 fl (80.0-94.0); MEAN CORPUSCULAR HGB 29.2 pg (27.0-31.0); MEAN CORPUSCULAR HGB CONC 32.7 g/dl (33.0-37.0); MEAN PLATELET VOLUME 11.3 fl (9.6-12.3); MONO # 0.9 10*3/uL (0.1-1.0); MONO % 6.8 % (3.0-9.0); NEUT # 9.8 10*3/uL (2.3-7.9); NEUT % 76.7 % (47.0-73.0); PLATELET COUNT AUTOMATED 422 10*3/uL (130-400); RED BLOOD COUNT 3.46 10*6/uL (4.50-5.90); RED CELL DISTRI WIDTH 14.5 % (0-14.5); WHITE BLOOD COUNT 12.7 10*3/uL (4.8-10.8)
[2020-03-26 07:38] LABS: INTERNATIONAL NORM RATIO 1.5 (2.0-3.5)
[2020-03-26 07:47] LABS: ALBUMIN 3.4 gm/dl (3.1-4.5); ALKALINE PHOSPHATASE 130 U/L (45-117); BUN 14 mg/dl (7-24); CHLORIDE 105 mmol/L (98-107); CREATININE 0.71 mg/dL (0.70-1.30); POTASSIUM 3.7 mmol/L (3.5-5.1); SGOT/AST 81 IU/L (3-35); SGPT/ALT 395 U/L (12-78); SODIUM 138 mmol/L (136-145); TOTAL PROTEIN 6.6 gm/dL (6.4-8.2)
[2020-03-26 08:00] VITALS: BP 140/94
--- NOTE | 2020-03-26 08:30 | NUR ---
PT RESTING IN BED. ASSISTED PT TO TURN. TOLERATED ROUTINE MED WITH NO PROBLEM. C/O LEFT LEG PAIN, RATES PAIN 6 ON PAIN SCALE 0-10. MEDICATED WITH DILAUDID IV PER PRN ORDER, SEE EMAR. CALL LIGHT IN REACH. SEE SHIFT ASSESSMENT.
--- NOTE | 2020-03-26 09:30 | NUR ---
RESTING IN BED WITH EYES CLOSED. MEDICATION SEEMS TO BE EFFECTIVE. CALL LIGHT IN REACH.
--- NOTE | 2020-03-26 09:30 | NUR ---
ATTEMPTED TO TALK WITH PT ABOUT DISCHARGE PLANS AND HE IS VERY ANXIOUS AT THIS TIME. ASKED ME TO CALL HIS BROTHER AND TALK TO HIM.
--- NOTE | 2020-03-26 09:58 | NUR ---
TOOK MLC OUT OF PT. PRESSURE APPLIED. PT TOLERATED. DR. MENDEZ IN ROOM. CALL LIGHT IN REACH.
--- NOTE | 2020-03-26 11:33 | NUR ---
MEDICATED WITH ROXICODONE FOR C/O LEFT LEG PAIN, RATES PAIN 4 ON PAIN SCALE 0-10. OXYGEN IN USE. CALL LIGHT IN REACH.
--- NOTE | 2020-03-26 11:40 | NUR ---
RIGHT SIDE NECK BLEEDING. PRESSURE APPLIED FOR 10 MINUTES WITH EXTRA PRESSURE DRESSING OVER. APPLIED PRESSURE FOR 10 MORE MINUTES TO MAKE SURE BLEEDING WAS STOPPED. WILL CON'T TO MONITOR. PT SITTING UP IN BED EATING. NASAL COVID TEST DONE AND SENT.
[2020-03-26 12:00] VITALS: BP 135/86
--- NOTE | 2020-03-26 12:00 | NUR ---
PT ANXIOUS AND TREMORS NOTED. HR-120-130'S. MEDICATED WITH XANAX PO PER PRN ORDER, SEE EMAR. CALL LIGHT IN REACH. WILL CON'T TO MONITOR.
--- NOTE | 2020-03-26 12:02 | NUR ---
CALLED PT BROTHER ABIDA AND EXPLAINED TO HIM THAT PT WAS NOT APPROPRIATE FOR [facility] AT THIS TIME, BUT NEEDED TO GO TO A SNF. STATES HE WOULD LIKE TO TALK TO HIS NEICES BEFORE MAKING A DECISION AND ASK ME TO CALL HIM BACK TOMORROW AND HE WILL HAVE ANSWER.
--- NOTE | 2020-03-26 12:24 | NUR ---
SPOKE WITH DR. MOSER MADE AWARE PT C/O NUMBNESS AND PAIN TO LEFT HIP/THIGH/ABOVE KNEE AREA. HE WILL LOOK INTO IT.
--- NOTE | 2020-03-26 12:40 | NUR ---
DR. MENESES ON FLOOR MADE AWRAE PT C/O PAIN/NUMBNESS TO LEFT LEG. HE ORDERED NEURONTIN.
--- NOTE | 2020-03-26 14:25 | NUR ---
Occupational Therapy evaluation completed on four NE with full evaluation to follow. Recommend occupational therapy per plan of care and SNF upon discharge. Thank you for this referral. Tari Curiel OTR/L
--- NOTE | 2020-03-26 14:26 | NUR ---
PHYSICAL THERAPY Physical therapy treatment session complete. Total time: 39 minutes. Total treatment time: 25 minutes. Patient supine in bed and agreeable to skilled PT services. Patient complaining of pain in left hip "from my hip to my toes." This is increased pain and pattern of pain from yesterday, where patient was only complaining of increased numbness/tingling in L2-3 dermatome on left side. This date, patient is complaining of pain from L2-L5, with most intensity of pain being at lateral thigh, L3-4. Patient describing pain as "burning like lava" in at the lateral thigh down to the top of the knee. Patient reports "numbness" at medial thigh, L3 dermatome. Change in strength in left leg from evaluation on 03/25/2020. Strength deficit noted at Left hip flexion this date, 3-/5. Patient unable to perform left knee extension (L3,4 nerve root) this date. Unable to perform place hold if placed into left knee extension. Left knee extension 0/5. Patient able to perform sit to stand exercises from EOB. Patient stood x5 with ~3 minutes rest in between standing. SpO2 ranging from 88-97% on 2L O2 via NC with sit to stand exercises. Heart rate into 150s with sit to stand activity. Sits 1 and 2 CGA from EOB; Sits 3,4,5 Isabel from EOB. Patient refusing to walk this date due to increased pain in left LE. Patient able to side step to the right x3 to get higher in the bed. Assistance needed to return to supine position, Isabel. Patient unable to scoot higher in bed, maxA to scoot patient higher in bed. Patient resting in supine position, comfortable, call driver within reach. Continue per POC. Recommend SNF at discharge. Thank you. Mya Pickett,PT,DPT.
--- NOTE | 2020-03-26 14:28 | NUR ---
PT C/O LEFT LEG PAIN, RATES PAIN 10 ON PAIN SCALE 0-10. MEDICATED WITH DILAUDID IV PER PRN ORDER, SEE EMAR. CALL LIGHT IN REACH. BED ALARM ON.
--- NOTE | 2020-03-26 14:50 | NUR ---
DR. MENDEZ CALLED MADE AWARE PT DRESSING TO RIGHT NECK STILL SEEPING SLOWLY. MADE AWARE CHANGED DRESSING AGAIN. HE STATES TO USE SURGICAL GLUE TO SITE.
--- NOTE | 2020-03-26 15:26 | NUR ---
PHYSICAL THERAPY GOT PT TO SIDE OF BED. PT UNABLE TO EXTEND LEFT LEG SITTING UP IN BED. HR-160. CALLED DR. MOSER MADE AWARE PT HR-120-130'S ON AND OFF TODAY. ALSO PAIN TO LEFT LEG IS STILL OCCURING. MADE AWARE PAIN MEDICATIONS HAVE BEEN GIVING PER EMAR. ALSO ANXIETY MEDICATIONS. PT STATES LEFT LEG NUMB AND PAIN. HR AFTER PT SIT FOR A MINUTE 120-130'S. MADE AWARE HR WENT UP TO 160 BUT DIDN'T LAST LONG BUT STILL 120-130'S. NO NEW ORDERS. STATES FROM PARALYTICS FROM BEING ON VENT SO LONG. WILL CON'T TO MONITOR.
--- NOTE | 2020-03-26 15:38 | NUR ---
DR. BOBO CALLED MADE AWARE PT LEG PAIN AND NUMBNESS HAS GOTTEN PROGRESSIVELY WORSE THROUGH THE DAY. HE WANTS DOPPLERS DONE ON LEG AND CALLED BACK.
--- NOTE | 2020-03-26 15:55 | NUR ---
PT SLEEPING IN BED. OXYGEN IN USE, HR-80'S. MEDICATIONS SEEMS TO BE HELPING AT THIS TIME. NO BLEEDING NOTED ON DRESSING TO RIGHT NECK. WILL CON'T TO MONITOR.
[2020-03-26 16:00] VITALS: BP 139/91
--- NOTE | 2020-03-26 16:01 | NUR ---
CALLED DR. BOBO MADE AWARE DOPPLER WAS DONE ON LEFT LEG WITH STRONG PULSES NOTED. ORDERED CT LS.
--- NOTE | 2020-03-26 18:45 | NUR ---
APPLKIED PRESSURE ON RIGHT SIDE NECK FOR 20 MINUTES TO HELP STOPO BLEEDING. SMALL AMOUNT OF BLOOD ON DRESSING PRIOR. NEW DRESSING APPLIED OVER THE DRESSING.
[2020-03-26 18:50] VITALS: BP 134/85
--- NOTE | 2020-03-26 18:50 | NUR ---
DR. MENESES CALLED SPOKE WITH PT ABOUT BEING TRANSFERRED TO [facility] LET PT KNOW CT RESULTS. DR. BOBO WAS MADE AWARE.
--- NOTE | 2020-03-26 19:00 | NUR ---
PT CALLED FAMILY MADE AWARE HE WILL BE TRANSFERRED.
--- NOTE | 2020-03-26 20:01 | NUR ---
NOTIFIED OF BLEEDING FROM [facility] SITE WHERE [facility] WAS REMOVED TODAY. SIGNIFICANT AMOUNT OF BLOOD NOTED. PRESSURE BEING HELD. DERMABOND TO BE APPLIED. AWARE THAT PT BEING TRANSFERRED BY AMBULANCE TO ON LICENSE OF [facility]. [facility] STATES THEY WILL BE HERE IN 23 MINUTES. INSTRUCTED TO HOLD PRESSURE AND APPLY DERMABOND. MONITOR PT. IF BLEEDING CONTINUES, NOTIFY .
--- NOTE | 2020-03-26 20:11 | NUR ---
ASKED TO COME TO THE FLOOR TO SEE PT.
--- NOTE | 2020-03-26 20:29 | NUR ---
PT TO BE TRANSFERRED TO [facility] VIA [facility] TO ROOM 594 BED 1. ACCEPTING PHYSICIAN IS . REPORT TO BE CALLED TO UNIT. UNIT NUMBER [phone].
--- NOTE | 2020-03-26 20:32 | NUR ---
CAMILA POSEY IN TO ADMINISTER PO XANAX PER PRN ORDER FOR PATIENT'S C/O ANXIETY. PT REFUSING WOUND PHOTOS PRIOR TO DISCHARGE DUE TO THIS ANXIETY. PRESSURE DRESSING TO [facility] INTACT AT THIS TIME.
--- NOTE | 2020-03-26 20:50 | NUR ---
REPORT CALLED TO NICHOLE
--- NOTE | 2020-03-26 21:14 | NUR ---
[facility] HERE TO TRANSPORT PT TO [facility]. ALL BELONGINGS GATHERED AND SENT WITH PATIENT. PRESSURE DRESSING TO [facility] INTACT. TELEMETRY MONITORS REMOVED.
== END 2020-03-26 21:14 | disposition short-term general hospital (02) | DRG 720 ==
LOC: ED 16:59 → EDHOLD 18:02 → 5E 18:02 → EDHOLD 18:09 → 5E 18:51 → 4NE 03-25 13:46
PROVIDERS: Internal Medicine; Internal Medicine Critical Care Medicine; Physician Assistant; Student in an Organized Health Care Education/Training Program; ADMIT Family Medicine
PROC: 02H633Z Insertion of Infusion Device into Right Atrium, Percutaneous Approach (ICD-10-PCS; 2020-03-10)
PROC: B548ZZA Ultrasonography of Superior Vena Cava, Guidance (ICD-10-PCS; 2020-03-10)
PROC: 0BH18EZ Insertion of Endotracheal Airway into Trachea, Via Natural or Artificial Opening Endoscopic (ICD-10-PCS; 2020-03-10)
PROC: 5A1955Z Respiratory Ventilation, Greater than 96 Consecutive Hours (ICD-10-PCS; 2020-03-10)
PROC: 03HY32Z Insertion of Monitoring Device into Upper Artery, Percutaneous Approach (ICD-10-PCS; 2020-03-10)
PROC: 4A133B1 Monitoring of Arterial Pressure, Peripheral, Percutaneous Approach (ICD-10-PCS; 2020-03-10)
PROC: 4A133J1 Monitoring of Arterial Pulse, Peripheral, Percutaneous Approach (ICD-10-PCS; 2020-03-10)
PROC: 02HV33Z Insertion of Infusion Device into Superior Vena Cava, Percutaneous Approach (ICD-10-PCS; 2020-03-13)
PROC: B548ZZA Ultrasonography of Superior Vena Cava, Guidance (ICD-10-PCS; 2020-03-13)
PROC: 03HY32Z Insertion of Monitoring Device into Upper Artery, Percutaneous Approach (ICD-10-PCS; principal; 2020-03-20)
PROC: 4A133B1 Monitoring of Arterial Pressure, Peripheral, Percutaneous Approach (ICD-10-PCS; 2020-03-20)
PROC: 4A133J1 Monitoring of Arterial Pulse, Peripheral, Percutaneous Approach (ICD-10-PCS; 2020-03-20)
PROC: 02HV33Z Insertion of Infusion Device into Superior Vena Cava, Percutaneous Approach (ICD-10-PCS; 2020-03-20)
PROC: B548ZZA Ultrasonography of Superior Vena Cava, Guidance (ICD-10-PCS; 2020-03-20)
PROC: 0BCB8ZZ Extirpation of Matter from Left Lower Lobe Bronchus, Via Natural or Artificial Opening Endoscopic (ICD-10-PCS; 2020-03-22)
PROC: 0BC88ZZ Extirpation of Matter from Left Upper Lobe Bronchus, Via Natural or Artificial Opening Endoscopic (ICD-10-PCS; 2020-03-22)
PROC: 0BC78ZZ Extirpation of Matter from Left Main Bronchus, Via Natural or Artificial Opening Endoscopic (ICD-10-PCS; 2020-03-22)
DX: A41.9 Sepsis, unspecified organism (principal); J96.01 Acute respiratory failure with hypoxia; U07.1 COVID-19; J45.909 Unspecified asthma, uncomplicated; E83.39 Other disorders of phosphorus metabolism; E83.41 Hypermagnesemia; E87.3 Alkalosis; E87.6 Hypokalemia; R65.20 Severe sepsis without septic shock; D64.9 Anemia, unspecified; E11.65 Type 2 diabetes mellitus with hyperglycemia; J12.89 Other viral pneumonia; R58 Hemorrhage, not elsewhere classified; D68.69 Other thrombophilia; E87.0 Hyperosmolality and hypernatremia; E46 Unspecified protein-calorie malnutrition; K72.00 Acute and subacute hepatic failure without coma; E78.1 Pure hyperglyceridemia; N17.9 Acute kidney failure, unspecified; Z68.27 Body mass index [BMI] 27.0-27.9, adult; Z91.030 Bee allergy status; Z79.899 Other long term (current) drug therapy

== ENCOUNTER 2020-09-01 19:42 | Emergency (ER) | payer OTHER ==
[~2020-09-01] VITALS: Ht 170.1 cm; Wt 81.6 kg
[~2020-09-01 19:42] MED LIST changes: +MAGNESIUM OXID500 MG PO; +MINIPRESS2 M1 PO; +OMNICEF300 MG PO; +PHARMASSURE FO0.4 MG PO; +PRILOSEC20 M1 PO; +PROAIR HFA8.5 GM INH; +REXULTI3 MG PO; +SINGULAIR10 M1 PO; +SYMB160 INH; +TOPAMAX25 M3 PO; +VIIBRYD40 PO; +XANAX1 MG PO
[2020-09-01 21:51] LABS: BASO # 0.1 10*3/uL (0.0-0.1); BASO % 1.1 % (0.0-1.0); EOS # 0.3 10*3/uL (0.0-0.4); HEMATOCRIT 41.8 % (42.0-52.0); LYMPH # 4.1 10*3/uL (1.3-4.4); LYMPH % 46.3 % (27.0-41.0); MEAN CELL VOLUME 86.4 fl (80.0-94.0); MEAN CORPUSCULAR HGB 27.5 pg (27.0-31.0); MEAN CORPUSCULAR HGB CONC 31.8 g/dl (33.0-37.0); MONO # 1.2 10*3/uL (0.1-1.0); MONO % 13.2 % (3.0-9.0); NEUT # 3.2 10*3/uL (2.3-7.9); PLATELET COUNT AUTOMATED 365 10*3/uL (130-400); RED BLOOD COUNT 4.84 10*6/uL (4.50-5.90); RED CELL DISTRI WIDTH 16.4 % (0-14.5)
[2020-09-01 22:05] LABS: ALBUMIN 3.7 gm/dl (3.1-4.5); ALKALINE PHOSPHATASE 113 U/L (45-117); BUN 12 mg/dl (7-24); CHLORIDE 109 mmol/L (98-107); CREATININE 1.05 mg/dL (0.70-1.30); LIPASE 192 U/L (73-393); SGOT/AST 18 IU/L (3-35); SGPT/ALT 36 U/L (12-78); SODIUM 141 mmol/L (136-145); TOTAL PROTEIN 7.3 gm/dL (6.4-8.2)
[2020-09-01 22:48] LABS: BILIRUBIN Negative (Negative); BLOOD Negative (Negative); CLARITY Cloudy (Clear); COLOR Yellow (Yellow); GLUCOSE Negative (Negative); KETONE Negative (Negative); LEUKO ESTERASE Negative (Negative); NITRITE Negative (Negative); PH 5.5 (4.5-8.0); SPECIFIC GRAVITY >= 1.030 (1.001-1.030)
[2020-09-01 23:03] LABS: MUCOUS 1+
== END 2020-09-01 23:57 | disposition home or self-care (01) ==
LOC: ED 19:42
PROVIDERS: Emergency Medicine
DX: K44.9 Diaphragmatic hernia without obstruction or gangrene (principal); E11.9 Type 2 diabetes mellitus without complications; J45.909 Unspecified asthma, uncomplicated; Z91.030 Bee allergy status; Z79.899 Other long term (current) drug therapy

== ENCOUNTER 2020-12-10 13:51 | Emergency (ER) | payer OTHER ==
[~2020-12-10] VITALS: Ht 175.2 cm; Wt 81.6 kg
[2020-12-10 14:27] LABS: BASO # 0.1 10*3/uL (0.0-0.1); BASO % 0.9 % (0.0-1.0); EOS # 0.3 10*3/uL (0.0-0.4); EOS % 3.3 % (1.0-4.0); HEMATOCRIT 43.5 % (42.0-52.0); LYMPH # 3.2 10*3/uL (1.3-4.4); MEAN CORPUSCULAR HGB 28.8 pg (27.0-31.0); MEAN CORPUSCULAR HGB CONC 32.4 g/dl (33.0-37.0); MEAN PLATELET VOLUME 10.2 fl (9.6-12.3); MONO # 0.9 10*3/uL (0.1-1.0); MONO % 11.4 % (3.0-9.0); NEUT # 3.6 10*3/uL (2.3-7.9); PLATELET COUNT AUTOMATED 328 10*3/uL (130-400); RED BLOOD COUNT 4.89 10*6/uL (4.50-5.90); RED CELL DISTRI WIDTH 13.8 % (0-14.5); WHITE BLOOD COUNT 8.1 10*3/uL (4.8-10.8)
[2020-12-10 15:08] LABS: ALBUMIN 3.6 gm/dl (3.1-4.5); ALKALINE PHOSPHATASE 126 U/L (45-117); BUN 9 mg/dl (7-24); CHLORIDE 111 mmol/L (98-107); CREATININE 0.99 mg/dL (0.70-1.30); LIPASE 151 U/L (73-393); POTASSIUM 4.1 mmol/L (3.5-5.1); SGOT/AST 15 IU/L (3-35); SGPT/ALT 27 U/L (12-78); SODIUM 139 mmol/L (136-145); TOTAL PROTEIN 7.4 gm/dL (6.4-8.2)
[2020-12-10 15:10] LABS: TROPONIN I < 0.015 ng/ml (<0.045)
[2020-12-10] MEDS ORDERED: PEPCID40 MG PO (15:28)
== END 2020-12-10 15:34 | disposition home or self-care (01) ==
LOC: ED 13:51
PROVIDERS: Nurse Practitioner
DX: K21.9 Gastro-esophageal reflux disease without esophagitis (principal); Z79.899 Other long term (current) drug therapy

== ENCOUNTER 2021-10-28 17:23 | Emergency (ER) | payer OTHER ==
[~2021-10-28] VITALS: Wt 81.6 kg
[~2021-10-28 17:23] MED LIST changes: +PEPCID40 MG PO
[2021-10-28 20:04] LABS: BASO # 0.1 10*3/uL (0.0-0.1); BASO % 1.2 % (0.0-1.0); EOS # 0.3 10*3/uL (0.0-0.4); EOS % 3.7 % (1.0-4.0); LYMPH # 3.3 10*3/uL (1.3-4.4); LYMPH % 38.8 % (27.0-41.0); MEAN CELL VOLUME 85.3 fl (80.0-94.0); MEAN CORPUSCULAR HGB 28.3 pg (27.0-31.0); MEAN CORPUSCULAR HGB CONC 33.2 g/dl (33.0-37.0); MEAN PLATELET VOLUME 10.2 fl (9.6-12.3); MONO # 1.3 10*3/uL (0.1-1.0); MONO % 14.7 % (3.0-9.0); NEUT # 3.5 10*3/uL (2.3-7.9); NEUT % 41.4 % (47.0-73.0); PLATELET COUNT AUTOMATED 350 10*3/uL (130-400); RED BLOOD COUNT 5.16 10*6/uL (4.50-5.90); RED CELL DISTRI WIDTH 14.1 % (0-14.5); WHITE BLOOD COUNT 8.6 10*3/uL (4.8-10.8)
[2021-10-28 20:20] LABS: ALBUMIN 3.5 gm/dl (3.1-4.5); ALKALINE PHOSPHATASE 128 U/L (45-117); BUN 11 mg/dl (7-24); CHLORIDE 109 mmol/L (98-107); CREATININE 1.04 mg/dL (0.70-1.30); POTASSIUM 3.6 mmol/L (3.5-5.1); SGOT/AST 15 IU/L (3-35); SGPT/ALT 31 U/L (12-78); SODIUM 139 mmol/L (136-145); TOTAL PROTEIN 7.4 gm/dL (6.4-8.2)
[2021-10-29] MEDS ORDERED: MEDI-MECLIZINE25 MG PO (01:14)
== END 2021-10-29 01:47 | disposition home or self-care (01) ==
LOC: ED 17:23
PROVIDERS: Emergency Medicine
DX: R42 Dizziness and giddiness (principal); E86.0 Dehydration; Z79.899 Other long term (current) drug therapy

== ENCOUNTER → 2022-06-24 | Outpatient (CLI) | payer OTHER ==
[~2022-06-24] MED LIST changes: +MEDI-MECLIZINE25 MG PO
[2022-06-24 12:38] LABS: HEMATOCRIT 44.6 % (42.0-52.0); MEAN CELL VOLUME 83.8 fl (80.0-94.0); MEAN CORPUSCULAR HGB 28.2 pg (27.0-31.0); MEAN CORPUSCULAR HGB CONC 33.6 g/dl (33.0-37.0); MEAN PLATELET VOLUME 10.2 fl (9.6-12.3); RED BLOOD COUNT 5.32 10*6/uL (4.50-5.90); RED CELL DISTRI WIDTH 14.5 % (0-14.5); WHITE BLOOD COUNT 6.9 10*3/uL (4.8-10.8)
[2022-06-24 13:08] LABS: ALKALINE PHOSPHATASE 144 U/L (45-117); BUN 11 mg/dl (7-24); CHLORIDE 110 mmol/L (98-107); CHOLESTEROL 206 mg/dL (<200); CREATININE 1.03 mg/dL (0.70-1.30); FREE T4 0.97 ng/dl (0.76-1.46); LDL CHOLESTEROL 130 mg/dL (9-159); POTASSIUM 4.1 mmol/L (3.5-5.1); SGOT/AST 22 IU/L (3-35); SGPT/ALT 44 U/L (12-78); SODIUM 141 mmol/L (136-145); TOTAL PROTEIN 7.6 gm/dL (6.4-8.2); TRIGLYCERIDES 205 mg/dl (<150)
[2022-06-24 13:13] LABS: THYROID STIM HORMONE (HS) 0.924 uIU/ml (0.358-4.75); VITAMIN D, 25-HYDROXY 12.9 ng/mL (30-100)
[2022-06-25 05:06] LABS: HBSAG Negative (Negative); HEP B CORE AB, IGM Negative (Negative); HEPATITIS C ANTIBODY 0.1 (0.0-0.9)
[2022-06-25 08:08] LABS: H PYLORI IGG AB 0.25 (0.00-0.79)
[2022-06-27 17:06] LABS: TESTOSTERONE FREE, (DIRECT) 10.3 pg/mL (8.7-25.1)
== END | disposition home or self-care (01) ==
LOC: LAB 12:02
PROVIDERS: ATTEND Family Medicine
DX: E74.09 Other glycogen storage disease (principal); F41.1 Generalized anxiety disorder; E55.9 Vitamin D deficiency, unspecified; R53.83 Other fatigue; Z79.899 Other long term (current) drug therapy; K21.9 Gastro-esophageal reflux disease without esophagitis; F39 Unspecified mood [affective] disorder; E29.1 Testicular hypofunction

== ENCOUNTER → 2022-09-22 | Outpatient (CLI) | payer OTHER ==
[2022-09-25 02:05] LABS: TESTOSTERONE FREE, (DIRECT) 12.3 pg/mL (8.7-25.1)
== END ==
LOC: LAB 10:26
PROVIDERS: ATTEND Internal Medicine
DX: E11.9 Type 2 diabetes mellitus without complications (principal); E29.1 Testicular hypofunction

== ENCOUNTER → 2022-11-10 | Outpatient (CLI) | payer OTHER ==
[2022-11-11 12:07] LABS: ANTI-DSDNA ANTIBODIES <1 IU/mL (0-9); ANTI-RNP ANTIBODIES <0.2 AI (0.0-0.9); ANTICHROMATIN ANTIBODIES <0.2 AI (0.0-0.9); ANTISCLERODERMA-70 AB <0.2 AI (0.0-0.9); SJOGREN ANTI-SS-A 0.2 AI (0.0-0.9); SJOREN AB, ANTI-SS-B <0.2 AI (0.0-0.9)
== END | disposition home or self-care (01) ==
LOC: LAB 12:14
PROVIDERS: ATTEND Internal Medicine
DX: A64 Unspecified sexually transmitted disease (principal); R53.83 Other fatigue

== ENCOUNTER 2024-09-29 03:35 | Emergency (ER) | payer OTHER ==
[~2024-09-29] VITALS: Ht 172.7 cm; Wt 78.5 kg
[2024-09-29 04:29] LABS: BASO # 0.1 10*3/uL (0.0-0.1); BASO % 0.7 % (0.0-1.0); EOS # 0.2 10*3/uL (0.0-0.4); EOS % 1.6 % (1.0-4.0); HEMATOCRIT 43.7 % (42.0-52.0); MEAN CELL VOLUME 88.5 fl (80.0-94.0); MEAN CORPUSCULAR HGB 28.5 pg (27.0-31.0); MEAN CORPUSCULAR HGB CONC 32.3 g/dl (33.0-37.0); MEAN PLATELET VOLUME 9.6 fl (9.6-12.3); MONO # 0.9 10*3/uL (0.1-1.0); NEUT % 66.7 % (47.0-73.0); PLATELET COUNT AUTOMATED 363 10*3/uL (130-400); RED BLOOD COUNT 4.94 10*6/uL (4.50-5.90); RED CELL DISTRI WIDTH 13.8 % (0-14.5); WHITE BLOOD COUNT 13.4 10*3/uL (4.8-10.8)
[2024-09-29 04:51] LABS: BUN 10 mg/dl (9-23); CHLORIDE 108 mmol/L (98-107)
== END 2024-09-29 05:28 | disposition home or self-care (01) ==
LOC: ED 03:35
PROVIDERS: Emergency Medicine
DX: R55 Syncope and collapse (principal); E83.41 Hypermagnesemia; E87.6 Hypokalemia; D64.9 Anemia, unspecified; E11.65 Type 2 diabetes mellitus with hyperglycemia; J45.909 Unspecified asthma, uncomplicated; F31.9 Bipolar disorder, unspecified; Z86.16 Personal history of COVID-19; Z98.890 Other specified postprocedural states

== ENCOUNTER → 2025-01-30 | Outpatient (CLI) | payer OTHER | END | disposition home or self-care (01) | LOC: CARD 10:10 | PROVIDERS: ATTEND Physician Assistant | DX: Z51.81 Encounter for therapeutic drug level monitoring (principal); F32.1 Major depressive disorder, single episode, moderate; Z79.899 Other long term (current) drug therapy ==